=== PATIENT | male | born 1940 | race Caucasian/White ===

== ENCOUNTER 2018-06-02 18:27 | Inpatient (IN) | payer MEDICARE, SELFPAY ==
[~2018-06-02] VITALS: Ht 185.4 cm; Wt 79.4 kg
[~2018-06-02 18:27] MED LIST: ATEN25 PO; BISA5EC PO; CIPRO500 MG PO; Cipro500 MG PO; Enulose10 GM/15 M PO; Flomax0.4 MG PO; Golytely Solu4000 ML PO; HYDACE10B PO; LISHYD1012 PO; OXYC5 PO; Roxicodone5 MG PO; TRAM50 PO; ZESTORETIC 20-121 EA PO
[2018-06-02 18:58] LABS: BASOPHILS ABSOLUTE AUTO 0.05 K/mm3 (0.00-0.23); BASOPHILS PERCENT AUTO 0 % (0-2); EOSINOPHILS PERCENT AUTO 0 % (0-6); Hematocrit 40.1 % (37.0-53.0); Hemoglobin 13.4 g/dL (13.5-17.5); IMMATURE GRAN ABSOLUTE AUTO 0.16 K/mm3 (0.00-0.10); IMMATURE GRAN PERCENT AUTO 1 % (0-1); LYMPHOCYTES ABSOLUTE AUTO 0.38 K/mm3 (0.84-5.20); LYMPHOCYTES PERCENT AUTO 2 % (21-46); MONOCYTES ABSOLUTE AUTO 0.95 K/mm3 (0.16-1.47); MONOCYTES PERCENT AUTO 4 % (4-13); Mean Corpuscular HGB 30.3 pg (26.0-34.0); Mean Corpuscular HGB Conc 33.4 g/dL (31.5-36.5); Mean Corpuscular Volume 91 fL (80-100); Mean Platelet Volume 9.7 fL (9.1-12.4); NEUTROPHILS ABSOLUTE AUTO 23.93 K/mm3 (1.96-9.15); NEUTROPHILS PERCENT AUTO 94 % (41-73); Platelet Count 223 K/mm3 (150-400); Red Blood Cell Count 4.42 M/mm3 (4.30-5.90); White Blood Cell Count 25.47 K/mm3 (4.00-11.30)
[2018-06-02 19:04] LABS: Source, Urine Catheter
[2018-06-02 19:13] LABS: Appearance, Urine Cloudy (Clear); Bilirubin, Urine Neg (Neg); Blood, Urine 4+ (Neg); Color, Urine Yellow (P-Yellow); Glucose Qualitative, Urine Neg (Neg); Ketones, Urine 1+ (Neg); Leukocyte Esterase, Urine 3+ (Neg); Nitrite, Urine Pos (Neg); Protein, Urine 2+ (Neg); Urobilinogen, Urine NORM (Normal)
[2018-06-02 19:14] LABS: Alanine Aminotransfer (ALT/SGP 14 U/L (12-78); Albumin, Blood 3.2 g/dL (3.4-5.0); Albumin/Globulin Ratio 0.9 (0.8-1.8); Alk Phos 52 U/L (50-136); Anion Gap 9 mmol/L (6-16); Aspartate Aminotrans (AST/SGOT 14 U/L (12-37); Bilirubin, Total 0.6 mg/dL (0.1-1.0); Blood Urea Nitrogen 17 mg/dL (8-24); Bun/Creatinine Ratio 14.5 (12.0-20.0); CO2, Blood 24 mmol/L (21-32); Calcium, Blood 8.6 mg/dL (8.5-10.1); Chloride, Blood 102 mmol/L (98-108); Creatinine, Blood 1.17 mg/dL (0.60-1.20); Globulin, Blood 3.5 g/dL (2.2-4.0); Glomerular Filtration Rate >60 (60-); Glucose, Blood 120 mg/dL (70-99); Potassium, Blood 3.8 mmol/L (3.5-5.5); Sodium, Blood 135 mmol/L (136-145); Total Protein, Blood 6.7 g/dL (6.4-8.2)
[2018-06-02 19:31] LABS: White Blood Cells, Urine TNTC /hpf (0-5)
[2018-06-02 19:32] LABS: Bacteria Many /hpf; Red Blood Cells, Urine 25-50 /hpf (0-2); Squamous Epithelial Cells Few /hpf (Few)
[2018-06-03 05:50] LABS: Hematocrit 35.8 % (37.0-53.0); Hemoglobin 12.1 g/dL (13.5-17.5); Mean Corpuscular HGB 30.6 pg (26.0-34.0); Mean Corpuscular HGB Conc 33.8 g/dL (31.5-36.5); Mean Corpuscular Volume 91 fL (80-100); Mean Platelet Volume 9.8 fL (9.1-12.4); Platelet Count 176 K/mm3 (150-400); RDW Coefficient Variation 13.1 % (11.7-14.2); RDW Standard Deviation 43.5 fL (35.1-46.3); Red Blood Cell Count 3.95 M/mm3 (4.30-5.90); White Blood Cell Count 23.06 K/mm3 (4.00-11.30)
[2018-06-03 06:24] LABS: Anion Gap 9 mmol/L (6-16); Blood Urea Nitrogen 24 mg/dL (8-24); Bun/Creatinine Ratio 20.9 (12.0-20.0); CO2, Blood 23 mmol/L (21-32); Calcium, Blood 8.3 mg/dL (8.5-10.1); Chloride, Blood 107 mmol/L (98-108); Creatinine, Blood 1.15 mg/dL (0.60-1.20); Glomerular Filtration Rate >60 (60-); Glucose, Blood 103 mg/dL (70-99); Potassium, Blood 4.1 mmol/L (3.5-5.5); Sodium, Blood 139 mmol/L (136-145)
[2018-06-04 05:03] LABS: BASOPHILS ABSOLUTE AUTO 0.03 K/mm3 (0.00-0.23); BASOPHILS PERCENT AUTO 0 % (0-2); EOSINOPHILS ABSOLUTE AUTO 0.02 K/mm3 (0.00-0.68); EOSINOPHILS PERCENT AUTO 0 % (0-6); Hematocrit 34.4 % (37.0-53.0); Hemoglobin 11.4 g/dL (13.5-17.5); IMMATURE GRAN ABSOLUTE AUTO 0.08 K/mm3 (0.00-0.10); IMMATURE GRAN PERCENT AUTO 0 % (0-1); LYMPHOCYTES ABSOLUTE AUTO 0.73 K/mm3 (0.84-5.20); LYMPHOCYTES PERCENT AUTO 4 % (21-46); MONOCYTES ABSOLUTE AUTO 0.79 K/mm3 (0.16-1.47); MONOCYTES PERCENT AUTO 4 % (4-13); Mean Corpuscular HGB 30.7 pg (26.0-34.0); Mean Corpuscular HGB Conc 33.1 g/dL (31.5-36.5); Mean Corpuscular Volume 93 fL (80-100); Mean Platelet Volume 10.3 fL (9.1-12.4); NEUTROPHILS ABSOLUTE AUTO 17.91 K/mm3 (1.96-9.15); NEUTROPHILS PERCENT AUTO 92 % (41-73); Platelet Count 166 K/mm3 (150-400); RDW Coefficient Variation 13.4 % (11.7-14.2); RDW Standard Deviation 45.6 fL (35.1-46.3); Red Blood Cell Count 3.71 M/mm3 (4.30-5.90); White Blood Cell Count 19.56 K/mm3 (4.00-11.30)
[2018-06-04 05:31] LABS: Alanine Aminotransfer (ALT/SGP 16 U/L (12-78); Albumin, Blood 2.6 g/dL (3.4-5.0); Albumin/Globulin Ratio 0.7 (0.8-1.8); Alk Phos 50 U/L (50-136); Anion Gap 8 mmol/L (6-16); Aspartate Aminotrans (AST/SGOT 24 U/L (12-37); Bilirubin, Total 0.4 mg/dL (0.1-1.0); Blood Urea Nitrogen 36 mg/dL (8-24); CO2, Blood 27 mmol/L (21-32); Calcium, Blood 8.9 mg/dL (8.5-10.1); Chloride, Blood 102 mmol/L (98-108); Creatinine, Blood 1.16 mg/dL (0.60-1.20); Globulin, Blood 3.7 g/dL (2.2-4.0); Glomerular Filtration Rate >60 (60-); Glucose, Blood 93 mg/dL (70-99); Sodium, Blood 137 mmol/L (136-145); Total Protein, Blood 6.3 g/dL (6.4-8.2)
[2018-06-04] MEDS ORDERED: TAMS.4ER PO (12:31)
[2018-06-04] MEDS ORDERED: CEFD300 PO (12:32)
== END 2018-06-04 14:00 | disposition home or self-care (01) | DRG 872 ==
LOC: ER 18:27 → MEDS 21:45 → ENPENDDIS 06-04 11:58 → MEDS 06-04 14:00
PROVIDERS: Emergency Medicine; Hospitalist; Internal Medicine
DX: A41.9 Sepsis, unspecified organism (principal); N39.0 Urinary tract infection, site not specified; I10 Essential (primary) hypertension; M54.9 Dorsalgia, unspecified; G89.29 Other chronic pain; F17.210 Nicotine dependence, cigarettes, uncomplicated; N40.1 Benign prostatic hyperplasia with lower urinary tract symptoms
CPT/HCPCS: 36415; 51701; 71046; 80048; 80053; 81001; 83605; 85025; 85027; 87040; 87077; 87086; 87186; 96361; 96365; 99285-25; J0696; J1650; J3480; J7030

== ENCOUNTER 2018-09-10 15:23 | Emergency (ER) | payer SELFPAY ==
[~2018-09-10] VITALS: Ht 182.9 cm; Wt 77.1 kg
[~2018-09-10 15:23] MED LIST changes: +CEFD300 PO; +TAMS.4ER PO
[2018-09-10 17:20] LABS: Influenza A Negative (NEGATIVE); Influenza B Negative (NEGATIVE)
[2018-09-10] MEDS ORDERED: BENZ100A PO (17:27)
[2018-09-10] MEDS ORDERED: MONT10T PO (17:27)
[2018-09-10] MEDS ORDERED: ALBU90OI INH (17:27)
== END 2018-09-10 17:37 | disposition home or self-care (01) ==
LOC: ER 15:23
PROVIDERS: Physician Assistant
DX: R05 Cough (principal); I10 Essential (primary) hypertension; Z88.5 Allergy status to narcotic agent; Z87.891 Personal history of nicotine dependence
CPT/HCPCS: 71046; 87804; 99283-25

== ENCOUNTER → 2018-11-02 | Outpatient (CLI) | payer SELFPAY ==
[~2018-11-02] MED LIST changes: +ALBU90OI INH; +BENZ100A PO; +MONT10T PO
== END ==
LOC: LAB SHORT 12:45 → LAB EV 12:45
DX: N30.00 Acute cystitis without hematuria (principal)
CPT/HCPCS: 87086

== ENCOUNTER → 2019-08-08 | Outpatient (CLI) | payer SELFPAY ==
[~2019-08-08] MED LIST changes: +Aspirin EC81 MG PO
== END | disposition home or self-care (01) ==
LOC: LAB EV 17:37 → LAB SHORT 17:37
DX: N39.0 Urinary tract infection, site not specified (principal)
CPT/HCPCS: 87086

== ENCOUNTER 2019-09-01 15:34 | Observation (INO) | payer OTHER ==
[~2019-09-01] VITALS: Ht 182.9 cm; Wt 72.8 kg
[~2019-09-01 15:34] MED LIST changes: -Aspirin EC81 MG PO
[2019-09-01] MEDS ORDERED: Aspirin EC81 MG PO (15:50)
[2019-09-01 16:03] LABS: BASOPHILS ABSOLUTE AUTO 0.03 K/mm3 (0.00-0.23); BASOPHILS PERCENT AUTO 0 % (0-2); EOSINOPHILS ABSOLUTE AUTO 0.12 K/mm3 (0.00-0.68); EOSINOPHILS PERCENT AUTO 1 % (0-6); Hematocrit 38.2 % (37.0-53.0); IMMATURE GRAN ABSOLUTE AUTO 0.02 K/mm3 (0.00-0.10); IMMATURE GRAN PERCENT AUTO 0 % (0-1); LYMPHOCYTES ABSOLUTE AUTO 0.79 K/mm3 (0.84-5.20); LYMPHOCYTES PERCENT AUTO 8 % (21-46); MONOCYTES PERCENT AUTO 1 % (4-13); Mean Corpuscular HGB 29.4 pg (26.0-34.0); Mean Corpuscular HGB Conc 31.4 g/dL (31.5-36.5); Mean Corpuscular Volume 94 fL (80-100); Mean Platelet Volume 9.2 fL (9.1-12.4); NEUTROPHILS ABSOLUTE AUTO 9.08 K/mm3 (1.96-9.15); NEUTROPHILS PERCENT AUTO 90 % (41-73); Platelet Count 342 K/mm3 (150-400); RDW Coefficient Variation 14.5 % (11.7-14.2); Red Blood Cell Count 4.08 M/mm3 (4.30-5.90); White Blood Cell Count 10.14 K/mm3 (4.00-11.30)
[2019-09-01 16:27] LABS: Alanine Aminotransfer (ALT/SGP 15 U/L (12-78); Albumin, Blood 3.3 g/dL (3.4-5.0); Albumin/Globulin Ratio 0.9 (0.8-1.8); Alk Phos 64 U/L (50-136); Anion Gap 5 mmol/L (6-16); Aspartate Aminotrans (AST/SGOT 19 U/L (12-37); Bilirubin, Total 0.3 mg/dL (0.1-1.0); Blood Urea Nitrogen 25 mg/dL (8-24); Bun/Creatinine Ratio 15.1 (12.0-20.0); CO2, Blood 27 mmol/L (21-32); Calcium, Blood 8.8 mg/dL (8.5-10.1); Chloride, Blood 110 mmol/L (98-108); Creatinine, Blood 1.66 mg/dL (0.60-1.20); Globulin, Blood 3.5 g/dL (2.2-4.0); Glomerular Filtration Rate 43 (60-); Glucose, Blood 106 mg/dL (70-99); Sodium, Blood 142 mmol/L (136-145); Total Protein, Blood 6.8 g/dL (6.4-8.2); Troponin I <0.015 ng/mL (0.000-0.040)
[2019-09-01 16:35] LABS: Calcium, Ionized (POC) 1.02 mmol/L (1.10-1.46); Chloride (POC) 109 mmol/L (98-108); Creatinine (POC) 1.6 mg/dL (0.8-1.3); Glucose (ISTAT POC) 90 mg/dL (70-99); Hemoglobin (POC) 11.9 g/dL (13.5-17.5); Potassium (POC) 4.3 mmol/L (3.5-5.5); Sodium (POC) 140 mmol/L (135-148); Total CO2 (POC) 25 mmol/L (21-32)
[2019-09-01 16:40] LABS: Source, Urine Clean Catch
[2019-09-01 16:55] LABS: Bilirubin, Urine Neg (Neg); Blood, Urine 2+ (Neg); Glucose Qualitative, Urine Neg (Neg); Ketones, Urine Neg (Neg); Leukocyte Esterase, Urine 3+ (Neg); Nitrite, Urine Pos (Neg); Protein, Urine 2+ (Neg); Urobilinogen, Urine NORM (Normal)
[2019-09-01 17:07] LABS: Appearance, Urine Hazy (Clear); Color, Urine Yellow (P-Yellow); White Blood Cells, Urine TNTC /hpf (0-5)
[2019-09-01 17:08] LABS: Bacteria Many /hpf; Squamous Epithelial Cells Many /hpf (Few)
[2019-09-01 17:48] LABS: U Phencyclidine Screen DETECTED
[2019-09-01 17:49] LABS: U Amphetamine Screen Not Detected; U Barbituate Screen Not Detected; U Benzodiazapine Screen Not Detected; U Buprenorphine Screen Not Detected; U Cannabinoids Screen Not Detected; U Cocaine Screen Not Detected; U Methadone Screen Not Detected; U Methamphetamine Screen Not Detected; U Opiates Screen DETECTED; U Oxycodone Screen Not Detected; U Propoxyphene Screen Not Detected
--- NOTE | 2019-09-01 20:01 | NUR ---
PT ADMITTED TO ROOM ICU 12 FROM ED AT 1932. REPORT RECEIVED. REVIEWED ED DOCUMENTATION. PT SLIDE TRANSFERRED TO BED. PT ON NARCAN DRIP. IS AWAKE AND IS IRRITABLE. DOES NOT WANT TO ANSWER ANY QUESTIONS. ORIENTED PT TO ROOM, ICU STATUS, AND GENERAL PLAN OF CARE. PT'S VERBALIZES HIS ONLY CONCERN IS THAT HE IS COLD AND WANTS BLANKETS. WILL ADDRESS ADMISSION QUESTIONS WHEN PT MORE AGREEABLE TO QUESTIONING. PT DOES SELF CATH AT HOME, WILL CONSIDER DHALIWAL IF PT NOT ABLE TO VOID.
--- NOTE | 2019-09-01 23:00 | NUR ---
SOHAIL RAZA, YUNI HOSPITALIST CALLED TO UNIT TO SPEAK TO PATIENT ABOUT HIS WANTING TO LEAVE AMA. UPDATE GIVEN THAT NARCAN DRIP HAD BEEN ON HOLD FOR 30 TO 45 MINUTES. PT QUESTIONED BY SOCCER REFEREE CONCERNING DECISION. NO ORDERS TO BE RECEIVED FOR DISCHARGE. DID PRESENT PT WITH AMA FORM. LEEROY SAUCEDA DISCUSSED WITH PT THE RATIONALES FOR REMAINING IN THE HOSPITAL, AND RISKS. THESE ALSO COVERED BY THIS RN. REMOVED BOTH IV'S. ONE THAT HAD BEEN PLACED AFTER PT HAD PULLED OUT EXISTING FIELD START IV. REMOVED DHALIWAL CATHETER AND STATLOCK. ALL LEADS AND EQUIPMENT REMOVED FROM PT. HIS CLOTHING WAS RETURNED TO PT. HE IS TO DRESS HIMSELF.
--- NOTE | 2019-09-01 23:46 | NUR ---
AMA PT LEAVE THE UNIT BY AMBULATION. ESCORTED TO OUTSIDE BY THIS RN. PT THANKED THE STAFF FOR THE HELP, BUT WOULD NOT RECONSIDER HIS DECISION TO LEAVE AMA. PT OUT OF ICU AT 2323.
[2019-09-02 00:27] LABS: Source, Urine Catheter
[2019-09-02 00:30] LABS: Bilirubin, Urine Neg (Neg); Blood, Urine 3+ (Neg); Glucose Qualitative, Urine Neg (Neg); Ketones, Urine Neg (Neg); Leukocyte Esterase, Urine 2+ (Neg); Nitrite, Urine Pos (Neg); Protein, Urine 1+ (Neg); Urobilinogen, Urine NORM (Normal)
[2019-09-02 00:37] LABS: Appearance, Urine Hazy (Clear); Color, Urine Yellow (P-Yellow)
[2019-09-02 00:41] LABS: Bacteria Many /hpf; Red Blood Cells, Urine 0-2 /hpf (0-2); Squamous Epithelial Cells Few /hpf (Few); White Blood Cells, Urine TNTC /hpf (0-5)
== END 2019-09-01 23:23 | disposition left against medical advice (07) ==
LOC: ER 15:34 → ICUW 15:35
PROVIDERS: Emergency Medicine; Nurse Practitioner Acute Care; ADMIT Hospitalist
DX: G92 Toxic encephalopathy (principal); I10 Essential (primary) hypertension; N40.0 Benign prostatic hyperplasia without lower urinary tract symptoms; F17.200 Nicotine dependence, unspecified, uncomplicated; N17.9 Acute kidney failure, unspecified; I73.89 Other specified peripheral vascular diseases; F16.10 Hallucinogen abuse, uncomplicated; Z88.5 Allergy status to narcotic agent; Z79.82 Long term (current) use of aspirin
CPT/HCPCS: 36415; 51701; 51702; 70450; 71045; 71275; 74175; 80047; 80053; 81001; 82550; 83880; 84484; 85014; 85025; 87077; 87086; 87186; 93005; 93010; 96361-59; 96365-59; 96372; 96376-59; 99285-25; G0378; J1644; J2310; J7030; Q9967

== ENCOUNTER → 2019-09-02 | Outpatient (CLI) | payer SELFPAY ==
[~2019-09-02] MED LIST changes: +Aspirin EC81 MG PO
== END | disposition home or self-care (01) ==
LOC: LAB SHORT 15:54 → LAB EV 15:54
DX: R30.0 Dysuria (principal)
CPT/HCPCS: 87077; 87086; 87186

== ENCOUNTER 2019-11-06 00:25 | Emergency (ER) | payer SELFPAY ==
[~2019-11-06] VITALS: Ht 182.9 cm; Wt 74.8 kg
== END 2019-11-06 03:04 | disposition home or self-care (01) ==
LOC: ER 00:25
DX: R09.89 Other specified symptoms and signs involving the circulatory and respiratory systems (principal); I10 Essential (primary) hypertension; Z79.82 Long term (current) use of aspirin; F17.200 Nicotine dependence, unspecified, uncomplicated; Z88.5 Allergy status to narcotic agent
CPT/HCPCS: 70360; 99283-25

== ENCOUNTER 2020-01-26 13:10 | Emergency (ER) | payer SELFPAY ==
[~2020-01-26] VITALS: Ht 185.4 cm; Wt 72.6 kg
[2020-01-26 14:27] LABS: Source, Urine Catheter
[2020-01-26 14:39] LABS: BASOPHILS ABSOLUTE AUTO 0.04 K/mm3 (0.00-0.23); BASOPHILS PERCENT AUTO 1 % (0-2); EOSINOPHILS ABSOLUTE AUTO 0.18 K/mm3 (0.00-0.68); EOSINOPHILS PERCENT AUTO 3 % (0-6); Hemoglobin 10.6 g/dL (13.5-17.5); IMMATURE GRAN ABSOLUTE AUTO 0.01 K/mm3 (0.00-0.10); IMMATURE GRAN PERCENT AUTO 0 % (0-1); LYMPHOCYTES ABSOLUTE AUTO 0.73 K/mm3 (0.84-5.20); LYMPHOCYTES PERCENT AUTO 10 % (21-46); MONOCYTES PERCENT AUTO 10 % (4-13); Mean Corpuscular HGB 27.6 pg (26.0-34.0); Mean Corpuscular HGB Conc 31.2 g/dL (31.5-36.5); Mean Corpuscular Volume 89 fL (80-100); Mean Platelet Volume 9.3 fL (9.1-12.4); NEUTROPHILS ABSOLUTE AUTO 5.59 K/mm3 (1.96-9.15); NEUTROPHILS PERCENT AUTO 77 % (41-73); Platelet Count 310 K/mm3 (150-400); RDW Coefficient Variation 17.2 % (11.7-14.2); RDW Standard Deviation 54.9 fL (35.1-46.3); Red Blood Cell Count 3.84 M/mm3 (4.30-5.90); White Blood Cell Count 7.25 K/mm3 (4.00-11.30)
[2020-01-26 14:51] LABS: Appearance, Urine Bloody (Clear); Bilirubin, Urine Neg (Neg); Blood, Urine 5+ (Neg); Color, Urine Red (P-Yellow); Glucose Qualitative, Urine Neg (Neg); Ketones, Urine 1+ (Neg); Leukocyte Esterase, Urine 2+ (Neg); Nitrite, Urine Pos (Neg); Protein, Urine 4+ (Neg); Specific Gravity, Urine 1.015 (1.003-1.022); Urobilinogen, Urine 1+ (Normal)
[2020-01-26 14:53] LABS: Bacteria Many /hpf; Red Blood Cells, Urine TNTC /hpf (0-2); Squamous Epithelial Cells Not Seen /hpf (Few); White Blood Cells, Urine TNTC /hpf (0-5)
[2020-01-26 15:00] LABS: Albumin, Blood 3.4 g/dL (3.4-5.0); Albumin/Globulin Ratio 0.9 (0.8-1.8); Bilirubin, Total 0.4 mg/dL (0.1-1.0); Bun/Creatinine Ratio 28.2 (12.0-20.0); Calcium, Blood 9.2 mg/dL (8.5-10.1); Creatinine, Blood 1.31 mg/dL (0.60-1.20); Globulin, Blood 3.6 g/dL (2.2-4.0); Potassium, Blood 3.8 mmol/L (3.5-5.5)
[2020-01-26] MEDS ORDERED: Pataday2.5 ML BOTHEYES (16:26)
== END 2020-01-26 15:21 | disposition left against medical advice (07) ==
LOC: ER 13:10
PROVIDERS: Physician Assistant
DX: G93.41 Metabolic encephalopathy (principal); N28.89 Other specified disorders of kidney and ureter; R31.9 Hematuria, unspecified; I10 Essential (primary) hypertension; N40.0 Benign prostatic hyperplasia without lower urinary tract symptoms; F17.210 Nicotine dependence, cigarettes, uncomplicated; Z88.5 Allergy status to narcotic agent; Z79.82 Long term (current) use of aspirin
CPT/HCPCS: 76770; 80053; 81001; 85025; 87077; 87086; 87186; 99284-25

== ENCOUNTER 2020-01-26 15:56 | Inpatient (IN) | payer MEDICARE ==
[~2020-01-26] VITALS: Ht 185.4 cm; Wt 69.2 kg
[2020-01-26] MEDS ORDERED: Pataday2.5 ML BOTHEYES (16:26)
[2020-01-26 18:17] LABS: U Amphetamine Screen Not Detected; U Barbituate Screen Not Detected; U Benzodiazapine Screen Not Detected; U Buprenorphine Screen Not Detected; U Cannabinoids Screen Not Detected; U Cocaine Screen Not Detected; U Methadone Screen Not Detected; U Methamphetamine Screen Not Detected; U Opiates Screen DETECTED; U Oxycodone Screen Not Detected; U Phencyclidine Screen Not Detected; U Propoxyphene Screen Not Detected
[2020-01-26 18:49] LABS: International Normalized Ratio 0.97; Prothrombin Time Results 10.4 Sec (9.7-11.5)
--- NOTE | 2020-01-26 20:33 | NUR ---
TRANSFER PT TO TRANSFER TO ICU 5. REPORT RECEIVED FROM LEEROY GOLDSTEIN.
[2020-01-26 22:06] LABS: Hematocrit 32.2 % (37.0-53.0); Hemoglobin 10.1 g/dL (13.5-17.5)
--- NOTE | 2020-01-26 22:16 | NUR ---
ARRIVAL TO ICU PT ARRIVED TO ICU APPROX 2039. PT SLEEPY, AROUSES TO VERBAL STIMULI. PT DOES NOT ANSWER WHEN ASKED REPEATEDLY ABOUT ORIENTATION QUESTIONS, BUT EXPRESSES NEEDS. PUPILS EQUAL AND REACTIVE, STRENGTH WEAK THROUGHOUT BUT EQUAL BILATERALLY. PT FOLLOWING SOME COMMANDS. PT DENIES PAIN, BUT REPEATEDLY REQUESTING TO URINATE AND HAVE BOWEL MOVEMENT. PT HAVING SMALL AMOUNT OF URINE OUTPUT, BLOOD-TINGED. LEEROY GOLDSTEIN FROM ER REPORTS BLADDER SCAN PRIOR TO DEPARTING ER THAT REVEALED 200 ML. WILL RECHECK AT MIDNIGHT AND Q6H PER ORDERS. NO SUCCESS WITH BOWEL MOVEMENT USING BEDPAN. PT FORGETFUL AND APPEARS CONFUSED ABOUT PLAN OF CARE, BUT IS REDIRECTABLE. PT HAS SLEPT INTERMITTENTLY BUT AROUSES TO REQUEST TO USE BEDPAN AND URINAL. PT ABLE TO ASSIST WITH TURNS IN BED. VITALS STABLE. BED ALARM IN PLACE. 1:[address] INVOLUNTARY HOLD IN PLACE.
--- NOTE | 2020-01-27 01:25 | NUR ---
UPDATE PT STRUGGLING WITH URINATION. WANTS TO KEEP URINAL IN BED SO HE CAN PEE CONTINUOUSLY. ABDOMEN PAINFUL. BLADDER SCANNED FOR NEARLY 500. DHALIWAL PLACED. NO 3 WAY IRRIGATION CATHETERS AVAILABLE IN ICU OR SURGICAL. DISCUSSED WITH PLASTIC CNC MACHINE OPERATOR AND 18 TURKISH PLACED. PT IMMEDIATELY HAD RELIEF FROM PAIN/PRESSURE IN ABDOMEN, APPROX 500 ML OF BLOODY URINE DRAINED. PT HAS SLEPT SOUNDLY SINCE. VITALS STABLE, BP ELEVATED EARLIER BUT LIKELY PAIN RELATED IT IS IMPROVED AFTER DHALIWAL PLACED. NEURO STATUS UNCHANGED.
[2020-01-27 03:45] LABS: BASOPHILS ABSOLUTE AUTO 0.04 K/mm3 (0.00-0.23); BASOPHILS PERCENT AUTO 1 % (0-2); EOSINOPHILS ABSOLUTE AUTO 0.07 K/mm3 (0.00-0.68); EOSINOPHILS PERCENT AUTO 1 % (0-6); Hematocrit 30.6 % (37.0-53.0); Hemoglobin 9.7 g/dL (13.5-17.5); IMMATURE GRAN ABSOLUTE AUTO 0.02 K/mm3 (0.00-0.10); IMMATURE GRAN PERCENT AUTO 0 % (0-1); LYMPHOCYTES ABSOLUTE AUTO 0.57 K/mm3 (0.84-5.20); LYMPHOCYTES PERCENT AUTO 7 % (21-46); MONOCYTES PERCENT AUTO 8 % (4-13); Mean Corpuscular HGB 27.9 pg (26.0-34.0); Mean Corpuscular HGB Conc 31.7 g/dL (31.5-36.5); Mean Corpuscular Volume 88 fL (80-100); Mean Platelet Volume 9.2 fL (9.1-12.4); NEUTROPHILS ABSOLUTE AUTO 7.27 K/mm3 (1.96-9.15); NEUTROPHILS PERCENT AUTO 84 % (41-73); Platelet Count 278 K/mm3 (150-400); RDW Coefficient Variation 16.9 % (11.7-14.2); RDW Standard Deviation 54.4 fL (35.1-46.3); Red Blood Cell Count 3.48 M/mm3 (4.30-5.90); White Blood Cell Count 8.67 K/mm3 (4.00-11.30)
[2020-01-27 04:05] LABS: Anion Gap 7 mmol/L (6-16); Blood Urea Nitrogen 27 mg/dL (8-24); Bun/Creatinine Ratio 30.3 (12.0-20.0); CO2, Blood 22 mmol/L (21-32); Calcium, Blood 8.1 mg/dL (8.5-10.1); Chloride, Blood 113 mmol/L (98-108); Creatinine, Blood 0.89 mg/dL (0.60-1.20); Glomerular Filtration Rate >60 (60-); Glucose, Blood 88 mg/dL (70-99); Potassium, Blood 3.7 mmol/L (3.5-5.5); Sodium, Blood 142 mmol/L (136-145)
--- NOTE | 2020-01-27 06:23 | NUR ---
SUMMARY DHALIWAL HAS CONTINUED TO DRAIN RED URINE WITH CLOTS. SINCE PLACEMENT OF DHALIWAL, PT HAS SLEPT SOUNDLY, AROUSING FOR REASSESSMENT. CONTINUES TO NOT ANSWER QUESTIONS, BUT FOLLOWS DIRECTIONS. QUICKLY FALLS BACK TO SLEEP AFTER ASSESSMENTS. VITALS STABLE. BP CONTINUES TO BE ELEVATED BUT SYSTOLIC LESS THAN 160 MOST CONSISTENTLY SO NO PRN ADDITIONAL ANTIHYPERTENSIVES GIVEN.
--- NOTE | 2020-01-27 08:28 | NUR ---
PT LYING IN BED ON L SIDE WITH EYES CLOSED. RESPONDS TO VERBAL STIMULI WITH CONFUSED SPEECH. MAKES EYE CONTACT. DOES NOT FOLOW COMMANDS. AMANDA. LUNG SOUNDS DIMINISHED IN BASES OTHERWISE CLEAR ALL OTHER BUSTAMANTE. SHALLOW AND TACHYPNIC RESP. ON TELE. RHYTHMN NSR @ RATE OF 71. PULSES STRONG. ABD SOFT. NO RESPONSE FROM PT UPON PALPATION. BOWEL SOUNDS AUSCLTATED IN ALL FOUR QUADRANTS. DHALIWAL IN PLACE AND DRAINING DARK RED URINE. SMALL CLOTS NOTED. SKIN WARM AND DRY. PERIPHERAL LINE IN LFA INFUSING AT A RATE OF 75 ML/HR. BED IN LOW POSITION, RAILS UP, AND CALL LIGHT WITH IN REACH.
--- NOTE | 2020-01-27 12:06 | NUR ---
IRRIGATED PT BLADDER W/ 100mL OF STERILE SALINE. PT TOLERATED PROCEDURE WELL. DHALIWAL FLOWING WELL. PT NOW RESTING IN BED ON R SIDE.
--- NOTE | 2020-01-27 13:33 | NUR ---
Spiritual care visit conducted. Patient is lying on his side and resting. Patient awakens to his name. Patient tells me that he is not doing very well. Physically or mentally. Patient tells me that he is no shape to talk right now but will "hopefully be waking up more soon." I ask patient if I could pray for him and he says, "please do." I gladly provide prayer. Patient voices appreciation
[2020-01-27 13:52] LABS: Hematocrit 32.2 % (37.0-53.0); Hemoglobin 10.1 g/dL (13.5-17.5)
--- NOTE | 2020-01-27 17:09 | NUR ---
PT VISIBLY ANXIOUS. STS HE WANTS TO LEAVE. PT PULLED PERIPHERAL IV. NEW PERIPHERAL LINE ESTABLISHED. PT LYING IN BE AT THIS TIME.
--- NOTE | 2020-01-27 18:11 | NUR ---
SHIFT SUMMARY PT HAS BECOME INCREASINGLY AGITATED OVER THE DAY. HAS PULLED LEADS OFF CHEST SEVERAL TIMES, PULLED PERIPHERAL IV, AND STATED THAT HE PLANS ON PULLING OUT HIS DHALIWAL. PT STS HE WANT TO LEAVE. PT HAS BEEN REDIRECTED SEVERAL TIMES AND GIVEN SEROQUEL. URINE HAS BECOME LESS RED IN COLOR AND NO BLOOD CLOTS NOTED. PT WILL BE MOVED TO PCU. REPORT HAS BEEN GIVEN TO DARREN UMAÑA AND PT WILL BE TRANSPORTED VIA BED.
--- NOTE | 2020-01-27 18:59 | NUR ---
PT ON THEIR WAY TO PCU 8 VIA BED BY REDDY
[2020-01-27 19:37] LABS: Hematocrit 31.5 % (37.0-53.0); Hemoglobin 10.2 g/dL (13.5-17.5)
[2020-01-28 01:41] LABS: BASOPHILS ABSOLUTE AUTO 0.02 K/mm3 (0.00-0.23); BASOPHILS PERCENT AUTO 0 % (0-2); EOSINOPHILS ABSOLUTE AUTO 0.07 K/mm3 (0.00-0.68); EOSINOPHILS PERCENT AUTO 1 % (0-6); Hematocrit 29.8 % (37.0-53.0); Hemoglobin 9.4 g/dL (13.5-17.5); IMMATURE GRAN ABSOLUTE AUTO 0.02 K/mm3 (0.00-0.10); IMMATURE GRAN PERCENT AUTO 0 % (0-1); LYMPHOCYTES ABSOLUTE AUTO 0.45 K/mm3 (0.84-5.20); LYMPHOCYTES PERCENT AUTO 6 % (21-46); MONOCYTES ABSOLUTE AUTO 0.62 K/mm3 (0.16-1.47); MONOCYTES PERCENT AUTO 9 % (4-13); Mean Corpuscular HGB 27.3 pg (26.0-34.0); Mean Corpuscular HGB Conc 31.5 g/dL (31.5-36.5); Mean Corpuscular Volume 87 fL (80-100); Mean Platelet Volume 9.1 fL (9.1-12.4); NEUTROPHILS ABSOLUTE AUTO 6.03 K/mm3 (1.96-9.15); NEUTROPHILS PERCENT AUTO 84 % (41-73); Platelet Count 279 K/mm3 (150-400); RDW Coefficient Variation 16.4 % (11.7-14.2); RDW Standard Deviation 52.2 fL (35.1-46.3); Red Blood Cell Count 3.44 M/mm3 (4.30-5.90); White Blood Cell Count 7.21 K/mm3 (4.00-11.30)
[2020-01-28 01:59] LABS: Albumin, Blood 2.6 g/dL (3.4-5.0); Anion Gap 7 mmol/L (6-16); Blood Urea Nitrogen 19 mg/dL (8-24); Bun/Creatinine Ratio 23.1 (12.0-20.0); CO2, Blood 23 mmol/L (21-32); Calcium, Blood 8.1 mg/dL (8.5-10.1); Chloride, Blood 112 mmol/L (98-108); Creatinine, Blood 0.82 mg/dL (0.60-1.20); Glomerular Filtration Rate >60 (60-); Glucose, Blood 92 mg/dL (70-99); Phosphorus, Blood 2.5 mg/dL (2.5-4.9); Potassium, Blood 3.5 mmol/L (3.5-5.5); Sodium, Blood 142 mmol/L (136-145)
--- NOTE | 2020-01-28 05:57 | NUR ---
SHIFT SUMMARY PT SLEEPING IN ROOM COMFORTABLY AT THIS TIME. NO ACUTE CHANGES IN STATUS T/O NIGHT. PT ARRIVED TO UNIT AT SHIFT CHANGE FROM ICU. PT WAS SLEEPING SOUNDLY UPON ARRIVAL, OPENED EYES BREIFLY TO VERBAL, PT REMAINED ALERTED PER ICU REPORT. PT HAS SLEPT T/O NIGHT WAKING OCCASIONALLY TO PULL AT IV LINES, TELE LEADS, AND DHALIWAL. PT ON CENTRAL MONITORING D/T BEING FLIGHT RISK. EARLY IN SHIFT PT TORE IV TUBING APART AND LINEN WAS CHANGED D/T BLOOD LEAKING FROM IV. IV CATHETER REMAINED INTACT AND NEW DRESSING WAS PLACED, SOFT NETTING PLACED TO PREVENT PT FROM PULLING AT LINES. NS INFUSING AT 125ML/HR. DHALIWAL CATH IN PLACE DRAINING RED URINE, RED COLOR HAS APPEARED TO LIGHTEN T/O NIGHT. BLADDER IRRIGATED TO DURING NIGHT D/T PRESENCE OF CLOTS. VERY FEW CLOTS NOTED T/O NIGHT. BED ALARM ON. CALL LIGHT IN REACH. PT UNABEL TO UTILIZE CALL LIGHT AFFECTIVELY D/T AMS.
[2020-01-28 07:57] LABS: Hematocrit 29.6 % (37.0-53.0); Hemoglobin 9.6 g/dL (13.5-17.5)
--- NOTE | 2020-01-28 11:23 | NUR ---
BLADDER IRRIGATION PERFORMED BY WARREN UMAÑA, 800ML OF STERILE WATER IN AND OUT WITH BLOOD CLOTS. PT IS CONSTANTLY PULLING AT CATHETER. CATH IS CONCEALED. PT REMAINS ON CAMERA.
--- NOTE | 2020-01-28 17:52 | NUR ---
SHIFT NOTE PT THIS AM AWOKE AND WAS ORIENTED AND ANSWERING MOST QUESTIONS APPROPRIATELY, WHEN HE DID NOT KNOW THE DATE HE USED HIS CELL PHONE TO FIND OUT THE DATE. PT HAS BEEN GETTTING OUT OF BED SOUNDING OFF BED ALARM NUMEROUS TIMES TODAY, PT STATING EACH TIME THAT HE NEEDS TO USE THE BATHROOM OR LEAVE HE HAS PEOPLE TO TAKE CARE OF. PT HAS ALSO BEEN PULLING AT DHALIWAL MOST OF THE DAY, DHALIWAL WAS IRRIGATED TODAY WITH SOME CLOTS. DHALIWAL IS DRAINING WELL TO GRAVITY AT THE TIME OF THIS NOTE. HAS ATE MEALS WELL. PT DESPITE BEING ORIENTED TO YEAR, SELF AND SURROUNDINGS IS CONFUSED AND NEEDS REDIRECTED OFTEN. PT IS ON CONSTANT VIDEO MONITORING, WHICH CENTRAL MONITORING HAS NEEDED TO CONTACT STAFF NUMEROUS TIMES T/O THE DAY PT IS ATTEMPTING TO PULL HIS DHALIWAL AND GETTING OUT OF BED. PT DID REMOVE HIS IV THIS AM WHICH WAS REPLACED THIS EVENING, THEN IV MEDICATIONS WERE D/C. PT'S URINE IS DRAINING CLEAR URINE WITH THE OCCASIONAL RED STREAKING NOTED AT THE TIME OF THIS NOTE.
[2020-01-28 18:18] LABS: Hematocrit 32.6 % (37.0-53.0); Hemoglobin 10.6 g/dL (13.5-17.5)
[2020-01-29 04:06] LABS: Hematocrit 32.3 % (37.0-53.0); Hemoglobin 10.3 g/dL (13.5-17.5); Mean Corpuscular HGB 27.8 pg (26.0-34.0); Mean Corpuscular HGB Conc 31.9 g/dL (31.5-36.5); Mean Corpuscular Volume 87 fL (80-100); Mean Platelet Volume 9.6 fL (9.1-12.4); Platelet Count 317 K/mm3 (150-400); RDW Coefficient Variation 16.8 % (11.7-14.2); RDW Standard Deviation 52.3 fL (35.1-46.3); Red Blood Cell Count 3.71 M/mm3 (4.30-5.90); White Blood Cell Count 6.57 K/mm3 (4.00-11.30)
[2020-01-29 04:28] LABS: Albumin, Blood 3.1 g/dL (3.4-5.0); Anion Gap 8 mmol/L (6-16); Blood Urea Nitrogen 13 mg/dL (8-24); CO2, Blood 25 mmol/L (21-32); Calcium, Blood 8.7 mg/dL (8.5-10.1); Chloride, Blood 111 mmol/L (98-108); Creatinine, Blood 0.81 mg/dL (0.60-1.20); Glomerular Filtration Rate >60 (60-); Glucose, Blood 85 mg/dL (70-99); Phosphorus, Blood 2.2 mg/dL (2.5-4.9); Sodium, Blood 144 mmol/L (136-145)
--- NOTE | 2020-01-29 05:45 | NUR ---
SHIFT SUMMARY PT SLEEPING IN ROOM COMFORTABLY AT THIS TIME. NO ACUTE CHANGES IN STATUS T/O NIGHT. PT REMAINS ALTERED. ALERT TO SELF AND LIMITED SURROUNDINGS ONLY. PT ABLE TO SAY HE IS IN HOSPITAL AND YEAR, BUT CANNOT STATE DAY OR MONTH. PT WAS PLACED IN BILAT SOFT WIRST RESTRAINT D/T CONTINUALLY PULLING AT CORDS, IV, AND DHALIWAL CATH. PT WAS ALSO COMBATTIVE TO STAFF. DHALIWAL CATH REMAINS IN PLACE DRAINING RED TINGED URINE. PT CONTINUED TO TRY AND GET OUT OF BED T/O NIGHT W/ BILAT WRIST RESTRAINTS ON. PT REDIRECTED MULTIPLE TIMES. PAJAMA PANTYS PLACED TO AID IN STOPING PT FROM PULLING AT DHALIWAL CATH. CALL LIGHT IN REACH. BED ALARM ON FOR SAFETY. PT ALSO ON VIDEO MONITORING.
--- NOTE | 2020-01-29 11:24 | NUR ---
DAUGHTER-NITHIN RETURNED [employer] PHONE CALL. YESTERDAY WHEN WE TALKED SHE RELATED THAT SHE WOULD COME GET HER DAD. SHE LIVES IN [place]. SHE WANTS TO MOVE HIM NEARER TO HER. SHE REQUESTED A HEADS UP TO GET HERE. TODAY I TALKED WITH HER. RELATED HER DADS BEHAVIOR LAST EVENING TOWARDS FEMALE STAFF AND PLACING HIM IN BILATERAL WRIST RESTRAINTS. SHE STATED," YOU DO WHATEVER YOU NEED TO DO TO KEEP SAFE. OTHERS HAVE TOLD ME IN THE PAST ABOUT SIMILIAR BEHAVIOR. DON'T WORRY ABOUT CALLING ME TO COME GET HIM. HE SHOULD BE ABLE TO CARE FOR HIMSELF WHEN HE GETS OUT. i WILL NOT BOTHER YOU LADIES ANYMORE." SHE REQUESTED TO BE NOTIFIED IF HE TOOK A TURN FOR THE WORSE. CONTINUE POT.
--- NOTE | 2020-01-29 18:21 | NUR ---
REPORT GIVEN TO LEEROY CASILLAS ASSUMING CARE OF PATIENT AT [facility], PLANS FOR [place] TRANSFER FOR UROLOGY.
--- NOTE | 2020-01-29 18:32 | NUR ---
SHIFT SUMMARY PT ALERT FOR MAJORITY OF SHIFT; ORIENTED TO PERSON AND TIME AND IS ABLE TO FOLLOW DIRECTIONS. MEDICATED FOR AGGITATION x2; THIS EVENING PT WAKING TO VERBAL STIMULI AND QUICKLY FALLING BACK TO SLEEP. PT CONTINUES TO BE INAPPROPRIATE WITH STAFF; ATTEMPTING TO GRAB AT STAFF AND SPEAKING INAPPROPRIATELY AND SOLISITING STAFF. PT DENIES PAIN, SOB, NASUEA, DIZZINESS. DHALIWAL PATIENT AND DRAINING RED FLUIDS, IRRIGATED THE DHALIWAL THIS AFTERNOON, WITH MULTIPLE BLOOD CLOTS NOTED; DRAINED DHALIWAL, NEW DRAINAGE CONTINUES TO BE RED. PT REFUSING LUNCH AND DINNER; MINIMAL INTAKE FROM BREAKFAST THIS AM. ELEVATED BP THIS AM, MEDICATED WITH SCHEDULE MED AND x1 PRN HYDRALAZINE WITH POSITIVE RESULTS. DAUGHTER NITHIN NOTIFIED OF TRANSFER TO [facility] BY LEATHER SHAVER JACKIE. PT LEFT ROOM WITH [facility] ON A GURNEY AT 1905. REPORT CALLED TO LEEROY CASILLAS ASSUMING CARE OF PATIENT AT [facility], NOTIFIED LEATHER SHAVER AT [facility] WHEN PT LEFT WITH TRANSPORT.
== END 2020-01-29 19:05 | disposition short-term general hospital (02) | DRG 689 ==
LOC: ER 15:56 → PCU 20:40 → ICUE 20:40 → PCU 01-27 14:01
PROVIDERS: Internal Medicine; Nurse Practitioner Acute Care; Physician Assistant; ADMIT Hospitalist
DX: N39.0 Urinary tract infection, site not specified (principal); G92 Toxic encephalopathy; F03.91 Unspecified dementia, unspecified severity, with behavioral disturbance; C64.2 Malignant neoplasm of left kidney, except renal pelvis; B95.2 Enterococcus as the cause of diseases classified elsewhere; N40.1 Benign prostatic hyperplasia with lower urinary tract symptoms; R31.0 Gross hematuria; N21.0 Calculus in bladder; I12.9 Hypertensive chronic kidney disease with stage 1 through stage 4 chronic kidney disease, or unspecified chronic kidney disease; N18.3 Chronic kidney disease, stage 3 (moderate); G89.4 Chronic pain syndrome; E78.2 Mixed hyperlipidemia; F17.210 Nicotine dependence, cigarettes, uncomplicated
CPT/HCPCS: 36415; 70450; 80048; 80069; 83605; 85014; 85018; 85025; 85027; 85610; 85730; 96361; 96365; 96367; 96375; 99285-25; A9270; J0360; J0696; J1630; J1956; J2060; J3480; J7030; J7060

== ENCOUNTER 2020-02-28 15:31 | Emergency (ER) | payer SELFPAY ==
[~2020-02-28] VITALS: Ht 182.9 cm; Wt 72.6 kg
[~2020-02-28 15:31] MED LIST changes: +Pataday2.5 ML BOTHEYES
== END 2020-02-28 16:38 | disposition left against medical advice (07) ==
LOC: ER 15:31
DX: Z53.21 Procedure and treatment not carried out due to patient leaving prior to being seen by health care provider (principal)
CPT/HCPCS: 99282

== ENCOUNTER 2020-05-16 20:33 | Observation (INO) | payer SELFPAY ==
[~2020-05-16] VITALS: Ht 182.9 cm; Wt 74.3 kg
[2020-05-16 21:09] LABS: BASOPHILS ABSOLUTE AUTO 0.03 K/mm3 (0.00-0.23); BASOPHILS PERCENT AUTO 0 % (0-2); EOSINOPHILS ABSOLUTE AUTO 0.17 K/mm3 (0.00-0.68); EOSINOPHILS PERCENT AUTO 2 % (0-6); Hematocrit 33.1 % (37.0-53.0); IMMATURE GRAN ABSOLUTE AUTO 0.03 K/mm3 (0.00-0.10); IMMATURE GRAN PERCENT AUTO 0 % (0-1); LYMPHOCYTES PERCENT AUTO 12 % (21-46); MONOCYTES ABSOLUTE AUTO 0.63 K/mm3 (0.16-1.47); MONOCYTES PERCENT AUTO 7 % (4-13); Mean Corpuscular HGB 23.6 pg (26.0-34.0); Mean Corpuscular HGB Conc 30.2 g/dL (31.5-36.5); Mean Corpuscular Volume 78 fL (80-100); Mean Platelet Volume 9.9 fL (9.1-12.4); NEUTROPHILS ABSOLUTE AUTO 6.69 K/mm3 (1.96-9.15); NEUTROPHILS PERCENT AUTO 78 % (41-73); Platelet Count 415 K/mm3 (150-400); RDW Coefficient Variation 19.9 % (11.7-14.2); RDW Standard Deviation 53.8 fL (35.1-46.3); Red Blood Cell Count 4.24 M/mm3 (4.30-5.90); White Blood Cell Count 8.55 K/mm3 (4.00-11.30)
[2020-05-16 21:28] LABS: Alanine Aminotransfer (ALT/SGP 15 U/L (12-78); Albumin, Blood 3.1 g/dL (3.4-5.0); Albumin/Globulin Ratio 0.7 (0.8-1.8); Alk Phos 85 U/L (50-136); Anion Gap 5 mmol/L (6-16); Aspartate Aminotrans (AST/SGOT 22 U/L (12-37); Bilirubin, Total 0.3 mg/dL (0.1-1.0); Blood Urea Nitrogen 10 mg/dL (8-24); Bun/Creatinine Ratio 7.2 (12.0-20.0); CO2, Blood 31 mmol/L (21-32); Calcium, Blood 8.3 mg/dL (8.5-10.1); Chloride, Blood 106 mmol/L (98-108); Creatinine, Blood 1.38 mg/dL (0.60-1.20); Ethanol (Alcohol), Blood, Med 11 mg/dL; Globulin, Blood 4.3 g/dL (2.2-4.0); Glomerular Filtration Rate 53 (60-); Glucose, Blood 92 mg/dL (70-99); Potassium, Blood 2.5 mmol/L (3.5-5.5); Salicylate 36.2 mg/dL (2.8-20.0); Sodium, Blood 142 mmol/L (136-145); Total Protein, Blood 7.4 g/dL (6.4-8.2)
[2020-05-16 21:45] LABS: Acetaminophen, Random <2.0 ug/mL (10.0-30.0)
[2020-05-16 21:49] LABS: Source, Urine Clean Catch
[2020-05-16 22:05] LABS: Appearance, Urine Clear (Clear); Bilirubin, Urine Neg (Neg); Blood, Urine 1+ (Neg); Color, Urine Yellow (P-Yellow); Glucose Qualitative, Urine Neg (Neg); Ketones, Urine Neg (Neg); Leukocyte Esterase, Urine Neg (Neg); Nitrite, Urine Neg (Neg); Protein, Urine 2+ (Neg); Urobilinogen, Urine NORM (Normal); pH, Urine 6.5 (5.0-8.0)
[2020-05-16 22:47] LABS: U Amphetamine Screen Not Detected; U Barbituate Screen Not Detected; U Benzodiazapine Screen Not Detected; U Buprenorphine Screen Not Detected; U Cannabinoids Screen Not Detected; U Cocaine Screen Not Detected; U Methadone Screen Not Detected; U Methamphetamine Screen Not Detected; U Opiates Screen Not Detected; U Oxycodone Screen Not Detected; U Phencyclidine Screen Not Detected; U Propoxyphene Screen Not Detected
[2020-05-16 23:04] LABS: Red Blood Cells, Urine Not Seen /hpf (0-2)
[2020-05-16 23:05] LABS: Bacteria Few /hpf; Mucus Light (0-Heavy); Squamous Epithelial Cells Few /hpf (Few)
--- NOTE | 2020-05-17 05:33 | NUR ---
SHIFT SUMMARY- PT. NEW ADMISSION FROM ED. PLEASANTLY CONFUSED WITH HX OF DEMENTIA. PT. HAS UNSTEADY GAIT, 1 ASSIST TO BATHROOM. CONT/INCONT, ATTENDS IN PLACE. HAD NO COMPLAINTS T/O THE NIGHT. K=2.5, REPLACED WITH PO K. IV FLUIDS INFUSING, TOLERATING WELL. PT. IMPULSIVE, BED ALARM ON FOR SAFETY. VSS. CALL LIGHT WITHIN REACH AND SIDE RAILS UPX2. WILL CONT TO MONITOR.
[2020-05-17 05:35] LABS: BASOPHILS ABSOLUTE AUTO 0.04 K/mm3 (0.00-0.23); BASOPHILS PERCENT AUTO 1 % (0-2); EOSINOPHILS ABSOLUTE AUTO 0.18 K/mm3 (0.00-0.68); EOSINOPHILS PERCENT AUTO 3 % (0-6); Hematocrit 30.4 % (37.0-53.0); IMMATURE GRAN ABSOLUTE AUTO 0.02 K/mm3 (0.00-0.10); IMMATURE GRAN PERCENT AUTO 0 % (0-1); LYMPHOCYTES ABSOLUTE AUTO 1.01 K/mm3 (0.84-5.20); LYMPHOCYTES PERCENT AUTO 16 % (21-46); MONOCYTES ABSOLUTE AUTO 0.51 K/mm3 (0.16-1.47); MONOCYTES PERCENT AUTO 8 % (4-13); Mean Corpuscular HGB 23.2 pg (26.0-34.0); Mean Corpuscular HGB Conc 29.6 g/dL (31.5-36.5); Mean Corpuscular Volume 78 fL (80-100); Mean Platelet Volume 10.1 fL (9.1-12.4); NEUTROPHILS ABSOLUTE AUTO 4.71 K/mm3 (1.96-9.15); NEUTROPHILS PERCENT AUTO 73 % (41-73); Platelet Count 379 K/mm3 (150-400); RDW Standard Deviation 53.9 fL (35.1-46.3); Red Blood Cell Count 3.88 M/mm3 (4.30-5.90); White Blood Cell Count 6.47 K/mm3 (4.00-11.30)
[2020-05-17 05:59] LABS: Albumin, Blood 2.5 g/dL (3.4-5.0); Albumin/Globulin Ratio 0.7 (0.8-1.8); Bilirubin, Total 0.3 mg/dL (0.1-1.0); Bun/Creatinine Ratio 7.6 (12.0-20.0); Calcium, Blood 8.2 mg/dL (8.5-10.1); Creatinine, Blood 1.32 mg/dL (0.60-1.20); Globulin, Blood 3.6 g/dL (2.2-4.0); Potassium, Blood 2.7 mmol/L (3.5-5.5); Total Protein, Blood 6.1 g/dL (6.4-8.2)
[2020-05-17 07:55] LABS: Source, Urine Clean Catch
[2020-05-17 08:18] LABS: Appearance, Urine Clear (Clear); Bilirubin, Urine Neg (Neg); Blood, Urine 1+ (Neg); Color, Urine Yellow (P-Yellow); Glucose Qualitative, Urine Neg (Neg); Ketones, Urine Neg (Neg); Leukocyte Esterase, Urine Neg (Neg); Nitrite, Urine Neg (Neg); Protein, Urine 2+ (Neg); Specific Gravity, Urine 1.005 (1.003-1.022); Urobilinogen, Urine NORM (Normal)
[2020-05-17 08:31] LABS: Bacteria Not Seen /hpf; Red Blood Cells, Urine 0-2 /hpf (0-2); Squamous Epithelial Cells Not Seen /hpf (Few); White Blood Cells, Urine 0-2 /hpf (0-5)
[2020-05-17 11:49] LABS: Albumin, Blood 2.5 g/dL (3.4-5.0); Anion Gap 3 mmol/L (6-16); Blood Urea Nitrogen 9 mg/dL (8-24); Bun/Creatinine Ratio 7.3 (12.0-20.0); CO2, Blood 33 mmol/L (21-32); Calcium, Blood 7.6 mg/dL (8.5-10.1); Chloride, Blood 111 mmol/L (98-108); Creatinine, Blood 1.24 mg/dL (0.60-1.20); Glomerular Filtration Rate 60 (60-); Glucose, Blood 86 mg/dL (70-99); Magnesium, Blood 2.4 mg/dL (1.6-2.4); Potassium, Blood 2.8 mmol/L (3.5-5.5); Sodium, Blood 147 mmol/L (136-145)
--- NOTE | 2020-05-17 18:44 | NUR ---
HE SLEPT THE FIRST 8 HRS OF THE SHIFT EXCEPT FOR WALKING TO THE BATHROOM WITH SBA TO VOID. HE DID NOT USE THE CALL LIGHT. HE SET OFF HIS BED ALARM. HE LATER ATE DINNER. CONSULTED THIS EVENING AND FOUND HIM TO NEED A GUARDIAN. HE REMAINS ON A 2 MD HOLD. HE RECEIVED IV KCL AND KPHOS TODAY FOR ELECTROLYTE IMBALANCE. HE ALSO HAS CLINIMIX INFUSING. HE VOIDED IN THE TOILET THIS AFTERNOON AND THEN HAD A PVR OVER 600. I NOTIFIED THIS EVENING AND ORDERS WERE RECEIVED. A COUDE CATHETER WAS PLACED AND UA SENT. HE ALSO C/O NECK, BACK AND RT ARM PAIN. TYLENOL WAS GIVEN AND INEFFECTIVE. HE IS NOW TRYING A HEATING PAD FOR HIS PAIN. HE DOES NOT TAKE PAIN PILLS AT HOME. HE REMAINS PLEASANTLY CONFUSED.
[2020-05-17 18:45] LABS: Source, Urine Catheter
[2020-05-17 19:01] LABS: Appearance, Urine Clear (Clear); Bilirubin, Urine Neg (Neg); Blood, Urine 1+ (Neg); Color, Urine Yellow (P-Yellow); Glucose Qualitative, Urine Neg (Neg); Ketones, Urine Neg (Neg); Leukocyte Esterase, Urine Neg (Neg); Nitrite, Urine Neg (Neg); Protein, Urine 2+ (Neg); Urobilinogen, Urine NORM (Normal)
[2020-05-17 19:11] LABS: Bacteria Few /hpf; Red Blood Cells, Urine 0-2 /hpf (0-2); Squamous Epithelial Cells Few /hpf (Few); White Blood Cells, Urine 0-2 /hpf (0-5)
[2020-05-18 05:22] LABS: BASOPHILS ABSOLUTE AUTO 0.02 K/mm3 (0.00-0.23); BASOPHILS PERCENT AUTO 0 % (0-2); EOSINOPHILS ABSOLUTE AUTO 0.14 K/mm3 (0.00-0.68); EOSINOPHILS PERCENT AUTO 3 % (0-6); Hematocrit 28.9 % (37.0-53.0); Hemoglobin 8.7 g/dL (13.5-17.5); IMMATURE GRAN ABSOLUTE AUTO 0.02 K/mm3 (0.00-0.10); IMMATURE GRAN PERCENT AUTO 0 % (0-1); LYMPHOCYTES ABSOLUTE AUTO 0.64 K/mm3 (0.84-5.20); LYMPHOCYTES PERCENT AUTO 12 % (21-46); MONOCYTES ABSOLUTE AUTO 0.43 K/mm3 (0.16-1.47); MONOCYTES PERCENT AUTO 8 % (4-13); Mean Corpuscular HGB 23.8 pg (26.0-34.0); Mean Corpuscular HGB Conc 30.1 g/dL (31.5-36.5); Mean Corpuscular Volume 79 fL (80-100); Mean Platelet Volume 9.9 fL (9.1-12.4); NEUTROPHILS ABSOLUTE AUTO 4.33 K/mm3 (1.96-9.15); NEUTROPHILS PERCENT AUTO 78 % (41-73); Platelet Count 340 K/mm3 (150-400); RDW Coefficient Variation 20.1 % (11.7-14.2); RDW Standard Deviation 55.4 fL (35.1-46.3); Red Blood Cell Count 3.66 M/mm3 (4.30-5.90); White Blood Cell Count 5.58 K/mm3 (4.00-11.30)
[2020-05-18 05:42] LABS: Alanine Aminotransfer (ALT/SGP 11 U/L (12-78); Albumin, Blood 2.4 g/dL (3.4-5.0); Albumin/Globulin Ratio 0.7 (0.8-1.8); Alk Phos 66 U/L (50-136); Anion Gap 3 mmol/L (6-16); Aspartate Aminotrans (AST/SGOT 19 U/L (12-37); Bilirubin, Direct <0.1 mg/dL (0.0-0.3); Bilirubin, Indirect Unable to Calculate mg/dL (0.1-0.7); Bilirubin, Total 0.3 mg/dL (0.1-1.0); Blood Urea Nitrogen 13 mg/dL (8-24); Bun/Creatinine Ratio 11.1 (12.0-20.0); CO2, Blood 33 mmol/L (21-32); CPK Creatine Kinase 124 U/L (39-308); Calcium, Blood 7.5 mg/dL (8.5-10.1); Chloride, Blood 110 mmol/L (98-108); Creatinine, Blood 1.17 mg/dL (0.60-1.20); Globulin, Blood 3.5 g/dL (2.2-4.0); Glomerular Filtration Rate >60 (60-); Glucose, Blood 101 mg/dL (70-99); Magnesium, Blood 2.6 mg/dL (1.6-2.4); Phosphorus, Blood 2.3 mg/dL (2.5-4.9); Potassium, Blood 3.1 mmol/L (3.5-5.5); Prostate Specific Antigen 0.186 ng/mL (0.000-4.000); Sodium, Blood 146 mmol/L (136-145); Total Protein, Blood 5.9 g/dL (6.4-8.2); Uric Acid, Blood 1.2 mg/dL (3.5-7.2)
--- NOTE | 2020-05-18 05:49 | NUR ---
SHIFT SUMMARY- PT. GIVEN FIRST DOSE OF SEROQUEL LAST NIGHT. HEAVILY SLEEPING/SNORING T/O THE SHIFT. SATS 87% THIS AM. PLACED PT. ON 2L O2 NC, INCREASED TO 94%. CLINIMIX INFUSING, PT. TOLERATING WELL. DHALIWAL CATHETER PATENT AND DRAINING. NO ACUTE DISTRESS. CALL LIGHT WITHIN REACH, SIDE RAILSX3, AND BED ALARM ON FOR SAFETY. WILL CONT TO MONITOR.
--- NOTE | 2020-05-18 10:59 | NUR ---
HE HAS BEEN TOO SLEEPY TO TAKE IN PO MEALS OR PO MEDS. HE OPENS HIS EYES WHEN I REPEAT HIS NAME AND TOUUCH HIM BUT JUST CURLS UP MORE AND CLOSES HIS EYES AND WANTS TO SLEEP. HE WAS LIKE THIS YESTERDAY TOO. THE DIFFERENCE WAS THE GARBAGE COLLECTION SUPERVISOR. THE NIGHT NURSE INDICATED THAT HE SLEPT VERY HEAVY AND IT WAS SO DIFFERENT THAN THE NIGHT BEFORE. I JUST NOTIFIED . HE SAYS TO TRY SEROQUEL 12.5 MG TONIGHT INSTEAD OF 25 MG. BED ALARM ON. IV KCL GIVEN AND THE KPHOS INFUSION ALMOST DONE. CLINIMIX IS ONGOING.
--- NOTE | 2020-05-18 18:44 | NUR ---
HE WOKE UP MID-AFTERNOON AND WAS HUNGRY FOR CANDY. HE ATE A CHOCOLATE PUDDING. HE WENT TO CT FOR A LOOK AT HIS PELVIS. HE ATE DINNER WELL THIS EVENING. HE REMAINS PLEASANTLY CONFUSED. NITHIN, HIS DAUGHTER CALLED TWICE TODAY AND THEN I CALLED HER JUST NOW. AFTER SPEAKING WITH ROBI THE MULTIGRAPH OPERATOR, I FIND THAT SHE HAS HAD EXTENSIVE CONVERSATIONS WITH NITHIN ABOUT HIS IMPENDING DISCHARGE. CARE MANAGEMENT AND ARE THINKING THAT NITHIN IS PICKING HER DAD UP TOMORROW AND TAKING HIM TO HER HOME AND THEN FLYING HIM TO [place] TO HIS SON ANTONETTE'S HOUSE TO LIVE. NITHIN SAYS THERE IS NO MONEY FOR THAT. SHE SAYS ANTONETTE IS WILLING TO BE HIS P.O.A. AND CARE FOR HIM.
--- NOTE | 2020-05-18 20:46 | NUR ---
PT PULLED OUT IV AND ATTEMPTED TO PULL OUT DHALIWAL AND CLIMB OOB; Primo CAMPBELL, LIGHTING SPECIALIST, NOTIFIED WITH ORDERS FOR BILL VEST RECEIVED.
--- NOTE | 2020-05-19 04:05 | NUR ---
SHIFT SUMMARY: 79 Y/O MALE VERY ANXIOUS AT BEGINNING OF SHIFT AND PULLED OUT IV WHILE ATTEMPTING TO CLIMB OOB AND PULL OUT DHALIWAL CATHETER; PT WOULD NOT FOLLOW ANY DIRECTIONS FROM NURSING STAFF; PT WAS GIVEN HALDOL 3MG IVP WITH GOOD RESULTS; PT WAS ALSO PLACED IN BILATERAL SOFT WRIST RESTRAINTS AND BILL VEST; CLINIX INFUSING WITHOUT ISSUE AFTER IV RESTARTED; DHALIWAL DRAINING CLEAR YELLOW FLUID; ALERT TO PERSON ONLY; PT HAS FAMILY POSSIBLY VISITING TODAY FROM [facility] TO RELOCATE PATIENT TO LIVE WITH FAMILY MEMBERS; BED ALARM APPLIED, BED LOW POSITION WITH CALL LIGHT AT SIDE.
[2020-05-19 05:03] LABS: Hemoglobin 8.7 g/dL (13.5-17.5)
[2020-05-19 05:24] LABS: Anion Gap 2 mmol/L (6-16); Blood Urea Nitrogen 14 mg/dL (8-24); CO2, Blood 33 mmol/L (21-32); Chloride, Blood 108 mmol/L (98-108); Creatinine, Blood 1.14 mg/dL (0.60-1.20); Glucose, Blood 91 mg/dL (70-99); Magnesium, Blood 2.6 mg/dL (1.6-2.4); Potassium, Blood 3.4 mmol/L (3.5-5.5); Sodium, Blood 143 mmol/L (136-145)
[2020-05-19 05:25] LABS: Albumin, Blood 2.5 g/dL (3.4-5.0); Bun/Creatinine Ratio 12.3 (12.0-20.0); Calcium, Blood 7.6 mg/dL (8.5-10.1); Glomerular Filtration Rate >60 (60-)
--- NOTE | 2020-05-19 08:03 | NUR ---
ADVISED BLD PRESS 177/100. PLACE ON TELE. LABETELOL 10 MG IV Q 6 HOURS PRN SYS >160
--- NOTE | 2020-05-19 17:02 | NUR ---
ALERT TO SELF. TELE ON AND PER TECH SR IN 'S. WRIST RESTRAINTS OFF, BUT BILL ON. HAVE BEEN ABLE TO REDIRECT PATIENT SO FAR TO NOT PULL OUT IV OR DHALIWAL. PATIENT TRIES MULTIPLE TIMES TO PULL AT ALL MEDICAL EQUIPMENT. TRIES TO GET OUT OF BED OFTEN. CAMERA ON. [facility]
--- NOTE | 2020-05-20 04:37 | NUR ---
BUNK HOUSE WORKER SUMMARY PT AAOX1, FOLLOWS MOST DIRECTION BUT REMAINS VERY CONFUSED AND RESTLESS. PT CONSTANTLY PULLING OFF TELE, PULLING AT IV LINES AND DHALIWAL CATHETER. PT ALSO ATTEMPTING NUMEROUS TIMES TO GET OUT OF BED TO "GO TO THE STORE". RECIEVED ORDER FROM DR VELASQUEZ FOR ADDITIONAL 25 MG SEROQUEL FOR PT WHICH HAD NO EFFECT. SPOKE WITH DR VELASQUEZ AGAIN AND RECIEVED ORDER FOR 2MG IV HALDOL WHICH DID HELP PT RELAX A BIT BUT PT STILL FIDLING WITH BEDDING AND RESTRAINTS THROUGH THE NIGHT. REMAINS IN BILL VEST. HYPERTENSIVE WITH SBP 170'S, GIVEN PO HYDRALAZINE WHICH GALINDO SBP TO 160'S. SBP REMAINS HIGH 160'S THIS AM, WILL GIVE IV LABETALOL PER EMAR. OTHER VSS, WILL CONTINUE TO MONITOR.
[2020-05-20 05:17] LABS: Hematocrit 31.2 % (37.0-53.0); Hemoglobin 9.3 g/dL (13.5-17.5)
[2020-05-20 05:37] LABS: Albumin, Blood 2.7 g/dL (3.4-5.0); Anion Gap 5 mmol/L (6-16); Blood Urea Nitrogen 12 mg/dL (8-24); Bun/Creatinine Ratio 11.5 (12.0-20.0); CO2, Blood 27 mmol/L (21-32); Calcium, Blood 7.7 mg/dL (8.5-10.1); Chloride, Blood 109 mmol/L (98-108); Creatinine, Blood 1.04 mg/dL (0.60-1.20); Glomerular Filtration Rate >60 (60-); Glucose, Blood 91 mg/dL (70-99); Magnesium, Blood 2.5 mg/dL (1.6-2.4); Phosphorus, Blood 2.3 mg/dL (2.5-4.9); Sodium, Blood 141 mmol/L (136-145)
--- NOTE | 2020-05-20 18:48 | NUR ---
ALERT TO SELF AND FAMILY. RESTRAINTS D'C. DOES NOT ALWAYS FOLLOW DIRECTIONS, BUT SEEMS TO BE REDIRECTABLE. THINKS HE IS AT HIS HOME. DID HAVE A CHANCE TO TALK TO HIS ROOMMATE TODAY. POSSIBLE D'C HOME WITH DAUGHTER CHECKING IN ON HIM AT NIGHT. PER DAUGHTER, NITHIN, THEY HAVE TAKEN HIS CAR AND CORTNEY AWAY SO HE CAN NOT DRIVE. TELE ON. REPORT TO NIGHT RN.
--- NOTE | 2020-05-21 05:15 | NUR ---
GIS ADMINISTRATOR SUMMARY PT MORE ORIENTED TONIGHT. HAS REMAINED OUT OF ALL RESTRAINTS. PT ONLY ATTEMPTED TO GET OOB A FEW TIMES AND WAS EASILY REDIRECTED. DENIES PAIN, SOB, N/V. PT LOST IV ACCESS ON DAY SHIFT, PT WAS NOT VERY HAPPY ABOUT THE IDEA OF STARTING A NEW IV. PER DAY SHIFT RN PT ATE MOST OF HIS MEALS THROUGH THE DAY. SPOKE WITH DR VELASQUEZ WHO GAVE ORDER TO DC PT'S CLINIMIX AND TO LEAVE IV OUT. ALSO OK TO DC TELE, PER FIRE PILOT NO CHANGES FOR SEVERAL DAYS. HYPERTENSIVE THIS AM, WILL GIVE PO HYDRALAZINE. OTHER VSS, WILL CONTINUE TO MONITOR.
[2020-05-21 05:31] LABS: Hematocrit 33.8 % (37.0-53.0)
[2020-05-21 05:54] LABS: Albumin, Blood 2.8 g/dL (3.4-5.0); Anion Gap 4 mmol/L (6-16); Blood Urea Nitrogen 13 mg/dL (8-24); Bun/Creatinine Ratio 12.1 (12.0-20.0); CO2, Blood 26 mmol/L (21-32); Calcium, Blood 8.5 mg/dL (8.5-10.1); Chloride, Blood 109 mmol/L (98-108); Creatinine, Blood 1.07 mg/dL (0.60-1.20); Glomerular Filtration Rate >60 (60-); Glucose, Blood 92 mg/dL (70-99); Magnesium, Blood 2.5 mg/dL (1.6-2.4); Phosphorus, Blood 2.2 mg/dL (2.5-4.9); Potassium, Blood 4.6 mmol/L (3.5-5.5); Sodium, Blood 139 mmol/L (136-145)
--- NOTE | 2020-05-21 17:06 | NUR ---
SUMMARY PT IS A/O X1-2, HE IS ABLE TO STATE WHERE HE IS, RECOGNIZES FAMILY HOWEVER WHEN ASKED DATE STATE IT IS "AUGUST", UNABLE TO REORIENT TO DATE OR YEAR. HE DEMONSTARATES ODD BEHAVIOR @ X'S, FLAT/WITHDRAWN AFFECT. HE HAS FOR THE MOST PART DECLINED OOB HOWEVER THIS AFTERNOON DIRECTOR OF CURRICULUM AND INSTRUCTION REPORT PT GOT UP, AMBULATED TO BR, +BM, OFFERED SHOWER HOWEVER PT DECLINE THEN GO BACK TO BED. APPETITE CONTINUES POOR HOWEVER HE HAS EATEN PORTIONS OF MEALS. ASK FOR PEPSI THIS AFTERNOON. DR CROOKS & CARE MANAGERS WORKING w FAMILY TO ARRANGE SAFE D/C. VSS.
--- NOTE | 2020-05-22 01:19 | NUR ---
PT SHOWING INCREASED AGGITATION AND CONFUSION, NURSE NOTIFIED
[2020-05-22 05:22] LABS: Hematocrit 32.1 % (37.0-53.0); Hemoglobin 9.6 g/dL (13.5-17.5)
[2020-05-22 05:36] LABS: Albumin, Blood 2.7 g/dL (3.4-5.0); Anion Gap 5 mmol/L (6-16); Blood Urea Nitrogen 19 mg/dL (8-24); Bun/Creatinine Ratio 16.5 (12.0-20.0); CO2, Blood 25 mmol/L (21-32); Calcium, Blood 8.6 mg/dL (8.5-10.1); Chloride, Blood 108 mmol/L (98-108); Creatinine, Blood 1.15 mg/dL (0.60-1.20); Glomerular Filtration Rate >60 (60-); Glucose, Blood 92 mg/dL (70-99); Magnesium, Blood 2.5 mg/dL (1.6-2.4); Potassium, Blood 4.5 mmol/L (3.5-5.5); Sodium, Blood 138 mmol/L (136-145)
--- NOTE | 2020-05-22 05:45 | NUR ---
INORGANIC CHEMICAL TECHNICIAN SUMMARY NO ACUTE CHANGES. PT AAOX2, COMMUNICATES WITH STAFF BUT IS STILL QUITE CONFUSED. BED ALARM REMAINS ON PT IS QUITE IMPULSIVE AND HAS ATTEMPTED TO GET OUT OF BED MULTIPLE TIMES WITHOUT ASSISTANCE. PT FORGETS HE IS IN THE HOSPITAL AND USUALLY DENIES THAT HE IS IN THE HOSPITAL. PT HAS REMAINED OUT OF RESTRAINTS THROUGH THE NIGHT. GAVE TYLENOL X1 FOR HEADACHE. VSS, WILL CONTINUE TO MONITOR.
--- NOTE | 2020-05-22 17:24 | NUR ---
SUMMARY PT IS A/O X1, FORGETFUL/CONFUSED. HE @ X'S IS EMOTIONAL, TEARFUL, MAKES FAITH STATEMENTS. BEHAVIOR HAS BEEN MANAGEABLE HOWEVER @ X'S ATTEMPTS UP W/O ASSIST, PULL @ DHALIWAL LINE, WAKES CONFUSED THINKING HE HAS TO LEAVE & FULFILL OBLIGATIONS, REQUIRES REORIENT/REASSURANCE/REDIRECTION, GENERALLY COOPERATIVE & REDIRECTABLE T/O DAY. DEHYDRATION & HYPOCALCEMIA HAVE RESOLVED. APPETITE HAS BEEN POOR TODAY, MEDIA CENTER ASSISTANT NOTIFIED HE DOES NOT EAT RED MEAT. VSS DR CROOKS & CAREMANGEMENT TEAM ATTEMPTING SAFE D/C HOWEVER POOR FAMILY SUPPORT @ THIS TIME, D/C DELAYED.
--- NOTE | 2020-05-22 19:54 | NUR ---
AWAKENED AT SHIFT CHANGE. STATED HE WASNTED TO SLEEP. CALL LIGHT IN REACH
--- NOTE | 2020-05-23 04:03 | NUR ---
SHIFT SUMMARY HAS BEEN AWAKE AT INTERVALS THIS SHIFT. MULTIPLE ATTEMPTS TO BET OUT OF BED TO "GO HOME" TO GET FOOD, TO DO THINGS HE FELT NEEDED. MULTIPLE ATTEMPTS TO REDIRECT HIM BACK TO BED FOR SAFETY HE IS A HIGH FALL RISK. BED ALARM ON. CALL LIGHT IN REACH. CURRENTLY RESTING QUIETLY.
[2020-05-23 05:09] LABS: Hematocrit 29.1 % (37.0-53.0); Hemoglobin 8.6 g/dL (13.5-17.5)
[2020-05-23 05:43] LABS: Albumin, Blood 2.6 g/dL (3.4-5.0); Anion Gap 6 mmol/L (6-16); Blood Urea Nitrogen 26 mg/dL (8-24); Bun/Creatinine Ratio 23.4 (12.0-20.0); CO2, Blood 25 mmol/L (21-32); Calcium, Blood 8.8 mg/dL (8.5-10.1); Chloride, Blood 106 mmol/L (98-108); Creatinine, Blood 1.11 mg/dL (0.60-1.20); Glomerular Filtration Rate >60 (60-); Glucose, Blood 121 mg/dL (70-99); Magnesium, Blood 2.4 mg/dL (1.6-2.4); Phosphorus, Blood 3.7 mg/dL (2.5-4.9); Potassium, Blood 4.1 mmol/L (3.5-5.5); Sodium, Blood 137 mmol/L (136-145)
--- NOTE | 2020-05-23 17:08 | NUR ---
SHIFT SUMMARY PT SLEEPING THIS AM AT START OF SHIFT. DID NOT WANT TO EAT BREAKFAST. PT LATER WOKE TO EAT LUNCH. CM HERE THIS AM TO DISCUSS PLAN OF CARE. PT TO GO HOME WITH DAUGHTER IN [place] ON [place], DAUGHTER UNABLE TO COME BACK DOWN UNTIL THEN. LATER THIS AFTERNOON, STEP DAUGHTER HERE TO REPORT THAT DAUGHTER IN [place] WILL NOT BE ABLE TO TAKE PT HOME. MORTISING MACHINE OPERATOR NOTIFIED AND CAME TO TO TALK WITH STEP DAUGHTER. NEW PLAN STARTED; GUARDIANSHIP AND PLACEMENT IN PROGRESS. PT SITTING UP IN BED EATING FOOD BROUGHT IN BY STEP DAUGHTER. NO C/O. CALL LT IN REACH. BED ALARM ON FOR SAFETY.
--- NOTE | 2020-05-24 03:57 | NUR ---
SUPERVISOR DRILLING AND SHOOTING SUMMARY ALERT AND ORIENTED TO SELF AND FAMILY. CONFUSED AND SOMEWHAT DIFFICULT TO REDIRECT AT TIMES. PT ATTEMPTING TO PULL ON DHALIWAL CATHETER DURING SHIFT. DENIES PAIN OR DISCOMFORT. NO ACUTE CHANGES NOTED. CURRENTLY APPEARS TO BE SLEEPING IN BED IN THE LOWEST POSITION WITH CALL LIGHT IN REACH. WILL CONTINUE TO MONITOR AND REPORT TO ONCOMING RN.
[2020-05-24 07:12] LABS: Hematocrit 31.1 % (37.0-53.0); Hemoglobin 9.2 g/dL (13.5-17.5)
[2020-05-24 07:30] LABS: Albumin, Blood 2.7 g/dL (3.4-5.0); Anion Gap 4 mmol/L (6-16); Blood Urea Nitrogen 21 mg/dL (8-24); Bun/Creatinine Ratio 20.2 (12.0-20.0); CO2, Blood 27 mmol/L (21-32); Chloride, Blood 110 mmol/L (98-108); Creatinine, Blood 1.04 mg/dL (0.60-1.20); Glomerular Filtration Rate >60 (60-); Glucose, Blood 113 mg/dL (70-99); Magnesium, Blood 2.4 mg/dL (1.6-2.4); Phosphorus, Blood 3.5 mg/dL (2.5-4.9); Potassium, Blood 4.1 mmol/L (3.5-5.5); Sodium, Blood 141 mmol/L (136-145)
--- NOTE | 2020-05-24 17:30 | NUR ---
PT AOX2-2 AND COOPERATIVE OF CARE. PT SPENT MOST OF THE SHIFT SLEEPING AND WOULD ONLY WAKE UP FOR A SHORT PERIOD THEN FALL FAST ASLEEP. PT WOULD NOT STAY AWAKE LONG ENOUGH TO SAFELY GIVEN MORNING MEDICATION. PT IS NOW AWAKE AND REQUESTED PAIN MEDS HE STATED HIS BODY WAS SORE. TREATED PER EMAR. PT THANKED THIS POLYSOMNOGRAPHIC TECHNICIAN FOR HER CARE. PT IS IN BED AT THIS TIME EATING DINNER. WILL KEEP BED ALARM ON AND CONTNUE TO MONITOR.
--- NOTE | 2020-05-24 18:33 | NUR ---
PT IS NOW WANTING TO PULL ON HIS DHALIWAL CATH TUBING. PT REDIRECTED, BUT STILL WANTS TO GO AFTER TO TUBING STATING HE NEEDS TO LEAVE. WILL CONTINUE TO MONITOR.
--- NOTE | 2020-05-25 04:23 | NUR ---
VENEER GLUER SUMMARY ALERT AND ORIENTED TO SELF ONLY. ATTEMPTING TO GET OUT OF BED SEVERAL TIMES AND PULLING ON DHALIWAL CATH TUBING. PT STATED THAT HE NEEDED TO GO TO THE STORE. DIFFICULT TO REDIRECT AT TIMES. HAS APPEARED TO SLEEP SINCE 2329. VSS. NO ACUTE DISTRESS NOTED. BED IN LOWEST POSITION WITH CALL LIGHT IN REACH. WILL CONTINUE TO MONITOR AND REPORT TO ONCOMING RN.
[2020-05-25 04:56] LABS: Hematocrit 31.9 % (37.0-53.0); Hemoglobin 9.3 g/dL (13.5-17.5)
[2020-05-25 05:17] LABS: Albumin, Blood 2.7 g/dL (3.4-5.0); Anion Gap 4 mmol/L (6-16); Blood Urea Nitrogen 20 mg/dL (8-24); CO2, Blood 26 mmol/L (21-32); Calcium, Blood 8.8 mg/dL (8.5-10.1); Chloride, Blood 109 mmol/L (98-108); Creatinine, Blood 0.95 mg/dL (0.60-1.20); Glomerular Filtration Rate >60 (60-); Glucose, Blood 91 mg/dL (70-99); Magnesium, Blood 2.3 mg/dL (1.6-2.4); Phosphorus, Blood 3.5 mg/dL (2.5-4.9); Potassium, Blood 4.2 mmol/L (3.5-5.5); Sodium, Blood 139 mmol/L (136-145)
[2020-05-25 05:30] LABS: Percent Saturation 6.2 % (20.0-50.0)
--- NOTE | 2020-05-25 17:34 | NUR ---
PT AOX2-3 WTIH CONFUSION. PT HAS BEEN SLEEPING ALL DAY AND THEN STARTED TO WAKE UP AROUND 1430. PT WAS THEN ABLE TO TAKE HIS DAILY ORAL MEDICATION HE SLEEPS TO SOUND TO AROUSE WELL WHEN HE IS REALLY SLEEPY. PT HAS STARTED TO PICK AND HIS IV AND DHALIWAL AT THIS TIME AND IS NOW CALLING OUT. BED ALARM IS ON AND CALL LIGHT IS WITHIN REACH.
--- NOTE | 2020-05-26 03:47 | NUR ---
SHIFT SUMMARY ASSUMED CARE OF PT AT 1900. PT IS A/OX1, DENIES N/T IN EXTREMITES. PT IS VERY FORGETFUL AND IMPUSLSIVE. HEART SOUNDS REGULAR, LUNG SOUNDS CLEAR, DENIES SOB/CP. PT HAS A CATHETER, DRAINING WITH GRAVITY, URINE IS CLOUDY AND YELLOW. PT IS A 1P SBA. PT ATTEMPTED TO GET OUT OF BED MULTIPLE TIMES DURING THE NIGHT. PT C/O PAIN T/O THE NIGHT, MEDICATED PER EMAR AND KPAD APPLIED. PT WOULD CALL OUT INTO THE BLUE FOR HELP BUT THEN FORGET WHAT HE NEEDED. PT TRIED TO LEAVE THE FLOOR TO SMOKE A CIGARETTE, PT WAS REDIRECTED AND REMINED THAT HE CANT SMOKE IN THE HOSPITAL. PT THINKS THAT HE IS LEAVING THIS AM. PT DID NOT SLEEP MUCH AT ALL TONIGHT. CALL LIGHT IN REACH, BED IN LOWEST POSTION, BED ALARM ON, CAMERA MONITORING IN PROGRESS.
[2020-05-26 05:27] LABS: Hematocrit 31.2 % (37.0-53.0); Hemoglobin 9.4 g/dL (13.5-17.5)
[2020-05-26 05:48] LABS: Albumin, Blood 2.8 g/dL (3.4-5.0); Anion Gap 6 mmol/L (6-16); Blood Urea Nitrogen 19 mg/dL (8-24); Bun/Creatinine Ratio 17.9 (12.0-20.0); CO2, Blood 26 mmol/L (21-32); Calcium, Blood 8.9 mg/dL (8.5-10.1); Chloride, Blood 107 mmol/L (98-108); Creatinine, Blood 1.06 mg/dL (0.60-1.20); Glomerular Filtration Rate >60 (60-); Glucose, Blood 92 mg/dL (70-99); Magnesium, Blood 2.2 mg/dL (1.6-2.4); Phosphorus, Blood 3.6 mg/dL (2.5-4.9); Potassium, Blood 3.8 mmol/L (3.5-5.5); Sodium, Blood 139 mmol/L (136-145)
--- NOTE | 2020-05-26 16:34 | NUR ---
SHIFT SUMMARY PATIENT MEDICATED X2 FOR PAIN IN RIGHT SHOULDER. KPAD FOR COMFORT. DENIES NAUSEA AND SHORTNESS OF BREATH. UP SBA IN ROOM AND HALLWAY. CONFUSED AND TEARFUL AT TIMES. WANTS HIS CAR, REQUIRES FREQUENT REDIRECTION. DHALIWAL PATENT AND DRAINING.
--- NOTE | 2020-05-27 04:29 | NUR ---
SHIFT SUMMARY ASSUMED CARE OF PT AT 1900. PT IS A/OX2, DENIES N/T IN EXTERMITES. HEART SOUNDS ERGULAR, LUNG SOUNDS CLEAR, DENIES CP/SOB. PT CATHERTER IS DRAINING WITH GRAVITY, URINE CLOUDY AND YELLOW. PT IS 1P SBA IN [address]. PT WAS VERY TEARFUL THIS EVENING AND WANTED TO HUG AND KISS STAFF. PT STATED THAT "GOD TOLD HIM TO". PT MEDICATED FOR PAIN PER EMAR. PT WAS ACTUALLY ABLE TO SLEEP TONIGHT AT ABOUT 2230 AND THEN SLEPT T/O THE NIGHT. CALL LIGHT IN REACH, BED IN LOWEST POSTION.
[2020-05-27 04:44] LABS: Hemoglobin 9.1 g/dL (13.5-17.5)
[2020-05-27 05:05] LABS: Albumin, Blood 2.9 g/dL (3.4-5.0); Anion Gap 5 mmol/L (6-16); Blood Urea Nitrogen 16 mg/dL (8-24); Bun/Creatinine Ratio 15.8 (12.0-20.0); CO2, Blood 27 mmol/L (21-32); Calcium, Blood 9.3 mg/dL (8.5-10.1); Chloride, Blood 110 mmol/L (98-108); Creatinine, Blood 1.01 mg/dL (0.60-1.20); Glomerular Filtration Rate >60 (60-); Glucose, Blood 94 mg/dL (70-99); Magnesium, Blood 2.3 mg/dL (1.6-2.4); Phosphorus, Blood 4.1 mg/dL (2.5-4.9); Potassium, Blood 3.9 mmol/L (3.5-5.5); Sodium, Blood 142 mmol/L (136-145)
--- NOTE | 2020-05-27 16:47 | NUR ---
SHIFT SUMMARY PATIENT MEDCIATED SEVERAL TIMES FOR PAIN IN RIGHT SHOULDER, LIDOCAINE PATCH TO RIGHT SHOULDER, KPAD ON NECK AND BACK. DENIES NAUSEA AND SHORTNESS OF BREATH. PATIENT CONTINUES TO REPORT POOR PAIN CONTROL. CALL TO DR. THEODORE, NEW ORDERS FOR SCHEDULED TYLENOL GIVEN. PATIENT UP SBA. PATIENT FREQUENTLY CONFUSED, ATTEMPTING TO GO IN OTHER PATIENT ROOMS, AND NEEDING REDIRECTION. DHALIWAL PATENT AND DRAINING.
[2020-05-28 04:27] LABS: Hematocrit 31.3 % (37.0-53.0); Hemoglobin 9.2 g/dL (13.5-17.5)
[2020-05-28 04:52] LABS: Albumin, Blood 2.9 g/dL (3.4-5.0); Anion Gap 7 mmol/L (6-16); Blood Urea Nitrogen 17 mg/dL (8-24); Bun/Creatinine Ratio 16.2 (12.0-20.0); CO2, Blood 26 mmol/L (21-32); Calcium, Blood 8.8 mg/dL (8.5-10.1); Chloride, Blood 109 mmol/L (98-108); Creatinine, Blood 1.05 mg/dL (0.60-1.20); Glomerular Filtration Rate >60 (60-); Glucose, Blood 113 mg/dL (70-99); Magnesium, Blood 2.1 mg/dL (1.6-2.4); Phosphorus, Blood 3.3 mg/dL (2.5-4.9); Potassium, Blood 3.3 mmol/L (3.5-5.5); Sodium, Blood 142 mmol/L (136-145)
--- NOTE | 2020-05-28 05:07 | NUR ---
SHIFT SUMMARY PT A/O X 1-2. KNEW THAT HIS ROOMMATE/LANDLORD WAS IN ROOM 346 AND SPENT THE FIRST PART OF THE SHIFT VISITING IN ROOMMATE'S ROOM EATING COOKIES AND WATCHING A MOVIE. PT IS DIFFICULT TO REDIRECT. ATTEMPTS TO HUG AND KISS STAFF AND BECOMES UPSET WHEN TOLD NOT TO. PT IS SBA WHEN OOB. COMPLAINS OF PAIN TO R SHOULDER. MEDICATED X 1 W/ TYLENOL 650 MG AND PROVIDED KPAD. VITAL SIGNS STABLE. PT AWAITING PLACEMENT. NO ACUTE CHANGES THIS SHIFT.
--- NOTE | 2020-05-28 17:38 | NUR ---
SHIFT SUMMARY. ALERT, ORIENTATED TO SELF ONLY. PLEASANT AND COOPERATIVE WITH MOST CARE. PT WITH MEMEORY DEFICITS, EASILY FORGETS CONVERSATION THAT OCCURS ONLY A FEW MINUTES PRIOR. PT BECAME AGITATED THIS AFTERNOON, HE BECAME FIXATED ON GOING TO ANOTHER PT'S ROOM WHO IS A FRIEND OF HIS. PHONE CALL ARRANGED WITH NURSE OF OTHER PT WITH PERMISSION FROM OTHER PATIENT. PT CONTINUED WITH AGITATION IN REGARDS TO GOING TO HIS FRIEND'S ROOM AND WOULD NOT STAY SEATED EVEN AFTER MULTIPLE WALKS IN THE BLUE, DR. THEODORE NOTIFIED, RECIEVED ONE TIME DOSE FOR SEROQUEL 12.5MG PO. MEDICATION GIVEN, SEE MAR, AND PT IS NOW SITTING IN ROOM QUIETLY WATCHING TV. PT HAD TAKEN APART DHALIWAL CATHETER FROM BAG TWICE THIS SHIFT, HE REPORTED THAT HE WAS LEAVING, PT WAS REDIRECTED AND CATHETER BAG REATTACHED WITH REDIRECTION. PT ATTEMPTED TO REMOVE IV TWICE THIS SHIFT, THIS RN WAS ABLE TO REDIRECT PT TO NEED OF IV AND PT ALLOWED THIS RN TO REWRAP WITH COBAN, DRESSING REMAINED INTACT. NO N/V. PT REPORTED CONSTANT PAIN TO NECK AND SHOULDER, PT REPORTED RELIEF WITH APAP, LIDOCAINE PATCH PLACED THIS AM. NO OTHER CHANGES OR CONCERNS.
--- NOTE | 2020-05-28 20:25 | NUR ---
ASSUMED CARE. ANTONETTE WAS SLEEPING, WOKE UP EASILY TO HIS NAME. ALERT TO SELF, AND FOLLOWS DIRECTION. TALKS A LOT ABOUT GOD AND IS AFRAID THAT HE IS NOT DOING WELL. HE EVEN ASKED IF HE WOULD STILL BE ALIVE IN THE MORNING. PROVIDED COMFORT AND REASSURANCE THAT HELPED HIM TO EASE OUT OF THE CRYING. HE ASKED FOR PAIN MEDS, INFORMED HIM IT IS NOT TIME YET THAT i WILL BRING THEM TO HIM WHEN IT IS AVAILABLE. HE TOOK HIS OTHER MEDICATION WITH NO PROBLEMS. HEATING PAD PLACED ON SHOULDER AND NECK. CATHETER PATENT AND DRAINING. VS WNL. BED ALARM IS ON AND CALL LIGHT IN REACH.
--- NOTE | 2020-05-28 22:23 | NUR ---
ANTONETTE IS BACK TO SLEEP, TURNED OUT THE LIGHTS, BED ALARM IS ON. CALL LIGHT NEXT TO HEAD.
--- NOTE | 2020-05-29 00:28 | NUR ---
CALLED THE DOCTOR ANTICIPATING ANTONETTE HAVING AN EPISODE LIKE TODAY. ORDER FOR PRN SEREQUEL RECEIVED. I GOT OFF THE PHONE ANTONETTE WAS AWAKE AND INSISTING ON BEING UP AND LEAVING. HE REMOVED HIS CATHETER BAG FROM THE TUBING, AND WANTED TO GET HIS PANTS ON TO LEAVE. TRIED TO RE-ORIENT HIM AND HE WOULD NOT. WAS ABLE TO GIVE THE EXTRA DOSE OF SEREQUEL ALONG WITH PAIN MEDS. THEN DISTRACTED HIM WITH OTHER CONVERSATION, AND GOT HIM BACK TO BED. BED ALARM IS ON, HE IS EATING A COOKIE AND WATCHING TV.
--- NOTE | 2020-05-29 05:59 | NUR ---
SHIFT SUMMARY: ALERT AND ORIENTED TO SELF. REPORTED PAIN ALL THE TIME IN SHOULDER AND NECK. SLEPT AT START OF SHIFT, THEN WOKE UP TRYING AND INSISTING HE HAD TO LEAVE, GET DRESS AND DO ERRANDS. HE EVEN PULLED OFF THE CATHTER BAG AND THERE FOR A WHILE DID NOT ALLOW US TO HOOK IT BACK UP. EVENTUALLY WITH DISTRACTIONS WAS ABLE TO GET HIM BACK TO BED AND CATHETER PUT BACK ON. GOT ORDER BY HOSPITALIST FOR EXTRA SERQUEL WHICH WAS GIVEN. ANTONETTE HAS SLEPT REST OF THE NIGHT. DID NOT DO 0400 LABS TO ALLOW HIM TO SLEEP. BED ALARM IS ON, CALL LIGHT IN REACH.
[2020-05-29 08:21] LABS: Hematocrit 33.3 % (37.0-53.0); Hemoglobin 9.8 g/dL (13.5-17.5)
[2020-05-29 08:42] LABS: Anion Gap 5 mmol/L (6-16); Blood Urea Nitrogen 11 mg/dL (8-24); Bun/Creatinine Ratio 12.3 (12.0-20.0); CO2, Blood 28 mmol/L (21-32); Calcium, Blood 9.4 mg/dL (8.5-10.1); Chloride, Blood 112 mmol/L (98-108); Creatinine, Blood 0.89 mg/dL (0.60-1.20); Glomerular Filtration Rate >60 (60-); Glucose, Blood 96 mg/dL (70-99); Magnesium, Blood 2.2 mg/dL (1.6-2.4); Phosphorus, Blood 3.4 mg/dL (2.5-4.9); Potassium, Blood 3.6 mmol/L (3.5-5.5); Sodium, Blood 145 mmol/L (136-145)
--- NOTE | 2020-05-29 14:30 | NUR ---
PT ATTEMPTING TO LEAVE HOSPITAL PT VERY AGITATED AND DISTRAUGHT ABOUT NOT BEING ABLE TO LEAVE OR GO SEE HIS FRIEND IN THE HOSPITAL. DESPITE REDIRECTION, PT DRESSED HIMSELF IN JEANS AND DISCONNECTED HIS DHALIWAL CATHETER. 3 NURSES, AIDE AND 3 SECURITY GUARDS ACTIVELY REASSURING AND REDIRECTING PT TO SIT DOWN AND STAY. PT INSISTING HE DOES NOT NEED A CATHETER AND HE DOES NOT WANT IT RECONNECTED. STATES "GOD WILL PROTECT HIM FROM GETTING AN INFECTION." PT AGREED TO DC DHALIWAL. LEEROY SAVAGE DC'D DHALIWAL. PT STATING HE WANTS A PILL TO "HELP HIM FEEL BETTER." NANCY, INSURANCE ASSISTANT CALLED DAUGHTER, KELLEY. KELLEY AGREED TO COME VISIT PT THIS EVENING. PT COMFORTED BY PENDING VISIT. AGREEABLE TO STAY IN HOSPITAL UNTIL HIS DAUGHTER COMES TO VISIT. WINDOW DRAPEROLIVER CALLED, CAME TO OFFER SPIRITUAL COUNSELING. PT RECEPTIVE OF WINDOW DRAPER VISIT. CALLED DR THEODORE TO INFORM HER OF EVENT. PER DR THEODORE, CAN DC DHALIWAL CATHETER. IV INFILTRATED EARLIER IN THE DAY. DR THEODORE OKAY'D NO IV ACCESS ORDER. ALSO MADE CHANGES TO SEROQUEL ORDER. PT STILL HAVING INTERMITTENT RESTLESSNESS, BUT COOPERATING WITH REDIRECTION NOW.
--- NOTE | 2020-05-29 18:32 | NUR ---
Initial spiritual care note: Asked by RN to meet with Ben. He was pleasantly confused and quite affectionate--kissing my hand and telling me he loved me. He feels he has somewhere to go. I was able to distract and redirect him for awhile, and we had a pleasant conversation about his олег in God. We prayed together for his friend who is also hospitalized. Ben appears frail. We had an easy rapport, but I doubt he will remember anything about me. I will continue to provide prayer and encouragement as case-load permits.
--- NOTE | 2020-05-29 19:02 | NUR ---
SHIFT SUMMARY PT AxOx3 WITH INTERMITTENT CONFUSION. IRRITABLE AND ANXIOUS BEHAVIORS TODAY. FREQUENT REORIENTING REQUIRED. PT C/O FREQUENTLY OF PAIN IN NECK/SHOULDERS. MEDICATED AND APPLIED HEAT PAD/REPOSITIONING PRN. WANTING TO LEAVE THE HOSPITAL AND CONCERNED ABOUT TAKING CARE OF HIS FRIEND IN THE HOSPITAL. SEE NOTE ON THIS SITUATION. DC'D DHALIWAL CATHETER AND IV ACCESS TODAY. MEDICATIONS CHANGED BY DR THEODORE. PT AMBULATING INDEPENDENTLY. DECREASED APPETITE. VITALS REVIEWED. PT AWAITING VISIT FROM STEP DAUGHTER THIS EVENING. CURRENTLY RESTING IN BED WITH CALL LIGHT IN REACH.
--- NOTE | 2020-05-29 19:20 | NUR ---
ASSUMED CARE. ANTONETTE IS VERY EMOTIONAL. ORIENTED TO SELF. REPORTING PAIN REALLY BAD IN SHOULDER AND NECK. GOT UPSET WHEN I TOLD HIM HE WAS NOT DUE FOR HIS PAIN MEDS TILL 2099. STATES HE CAN'T WAIT THAT LONG. LAYING IN BED, WITH HEATING PAD ON. PULLED OUT HIS CATHTER TODAY. HAS NOT VOIDED SINCE THEN. DENIES NEED TO URINATE. CALLED HOSPITALIST CESAR MORRISSEY, GOT ORDER FOR BLADDER SCAN AND STRAIGHT CATH. REQUESTED ORDER FOR BENGAY PAIN RUB TO HELP WITH PAIN IN BETWEEN PAIN MEDICATIONS. ORDER RECEIVED. WILL APPLY WHEN IT ARRIVES. CALL LIGHT IN REACH.
--- NOTE | 2020-05-30 00:48 | NUR ---
PATIENT CONTINUES TO GO TO THE BATHROOM AND WILL NOT ALLOW THE DOOR OPEN, HE REFUSES TO URINATE IN URINAL. BLADDER SCAN IS ONLY SHOWING 419, BUT NOT SURE IT IS READING CORRECTLY. HE STILL REFUSES TO HAVE A STRAIGHT CATH PERFORMED. DENIES ANY DISCOMFORT.
--- NOTE | 2020-05-30 05:49 | NUR ---
SHIFT SUMMARY: ANTONETTE SILVA ORIENTED TO SELF. HE WAS AMBULATING THE BLUE CONSTANTLY ASKING FOR PAIN MEDICATION, STATING HE HURT SO BAD. CESAR BUSINESS DEVELOPER CALLED AND GOT ORDER FOR SOME BENGAY RUB. HE TOOK HIS MEDS WITH NO PROBLEMS AND LAID DOWN FOR A WHILE. HE SAID THE RUB HELPED SOME. HE WAS UP AND DOWN TO THE BATHROOM AND WOULD NOT ALLOW STAFF IN THE BATHROOM. NEVER HEARD HIM URINATE. BUT HE INSIST THAT HE WAS GOING LARGE AMOUNTS. BLADDER SCAN WAS 447. ALSO GOT ORDER FROM CESAR FOR STRAIGHT CATH IF GREATER THEN 600. HE WOULD REFUSE TO URINATE IN URINAL. SECOND BLADDER SCAN WAS SEVERAL HOURS LATER AND ONLY 419. HE INSISTED HE WAS JUST FINE AND DON'T NEED TO BE CATHERIZED. HE THEN LAID DOWN TO SLEEP AND HAS SLEPT THE REST OF THE NIGHT. VS WNL, AFEBRILE. WILL CONTINUE TO MONITOR TILL DAY SHIFT ARRIVES.
--- NOTE | 2020-05-30 11:28 | NUR ---
PATIENT BLADDER SCAN POST VOID WAS 450cc. NOTIFIED DR THEODORE WHO GAVE NEW ORDERS TO PLACE DHALIWAL CATH IN PATIENT. 400cc OF CLOUDY YELLOW URINE IMMEDIATELY DRAINED. UA SENT TO LAB PER PROTOCOL.
[2020-05-30 11:32] LABS: Source, Urine Catheter
[2020-05-30 11:42] LABS: Appearance, Urine Turbid (Clear); Bilirubin, Urine Neg (Neg); Blood, Urine 5+ (Neg); Color, Urine Yellow (P-Yellow); Glucose Qualitative, Urine Neg (Neg); Ketones, Urine Neg (Neg); Leukocyte Esterase, Urine 3+ (Neg); Nitrite, Urine Neg (Neg); Protein, Urine 3+ (Neg); Specific Gravity, Urine 1.015 (1.003-1.022); Urobilinogen, Urine NORM (Normal)
[2020-05-30 11:50] LABS: White Blood Cells, Urine TNTC /hpf (0-5)
[2020-05-30 11:52] LABS: Bacteria Many /hpf; Squamous Epithelial Cells Rare /hpf (Few)
--- NOTE | 2020-05-30 17:45 | NUR ---
PATIENT HAS BEEN PLEASANT AND COOPERATIVE WITH STAFF. TAKES HIS MEDICATION WITHOUT COMPLICATION. DHALIWAL CATHETER PLACED DUE TO URINARY RETENTION. UA SENT TO THE LAB PER PROTOCOL; URINE IS ALMOST A WHITE COLOR WITH LOTS OF SEDIMENT PRESENT. UTI INDICATED. PATIENT APPEARS TO BE PRETTY STEADY ON HIS FEET. CONSTANTLY REQUESTS PAIN MEDICATION, EVEN IF HE JUST RECEIVED SOME. NO ACUTE CHANGES NOTED THIS SHIFT. PATIENT RESTING IN BED AT THIS TIME. WILL CONTINUE TO MONITOR AND PROVIDE CARE NEEDED.
--- NOTE | 2020-05-31 05:20 | NUR ---
SHIFT SUMMARY: VSS. AFEB. AAOX3. FORGETFUL. REPEATEDLY ASKS FOR PAIN MEDS FOR NECK, R SHOULDER, AND BACK. TYLENOL GIVEN X 2. HOT PACK IN PLACE. PT STATES HELPFUL. TOPICAL BENGAY APPLIED. PT IS CURRENTLY SLEEPING. F/C PATENT AND DRAINING CLOUDY, MUCOUSY, YELLOW URINE. NO ACUTE CHANGES OVERNIGHT. WILL CONT TO MONITOR.
[2020-05-31 07:17] LABS: Glomerular Filtration Rate >60 (60-); Phosphorus, Blood 3.5 mg/dL (2.5-4.9); Potassium, Blood 2.9 mmol/L (3.5-5.5)
--- NOTE | 2020-05-31 18:32 | NUR ---
SHIFT SUMMARY PT SLEEPING LATE THIS MORNING AND DIDN'T WANT TO BE ROUSED TIL HIS DAUGHTER ARRIVED LATE THIS MORNING. IMMEDIATELY STARTED REPORTING SEVERE PAIN TO NECK/SHOULDER/BACK. WOULDN'T MOVE TO TAKE HIS PILLS SAFELY UNTIL IT WAS INSISTED HE SIT UP FOR MEDS. CONTINUED TO REPORT SIGNIFICANT PAIN TO SAME AREAS TIL NEW ORDER FOR SCHEDULED TYLENONL STARTED AND AN EXTRA DOSE GIVEN. AFTER THAT HE SAID THE PAIN WAS MUCH IMPROVED. ALARM SOUND AND PT WAS FOUND ATTEMPTING TO GET TO BATHROOM AND WAS INCONTINENT OF STOOL. SHOWER GIVEN AT THAT TIME. HAS CALLED OUT FREQUENTLY TODAY ASKING FOR VARIOUS THINGS. STATED ONCE OR TWICE HE NEEDED TO GO AND GET HIS CAR AT HIS DAUGHTERS TO PICK HIS FRIEND UP TOMORROW AND GET HIS LICENCE REINSTATED TOMORROW. COULD AT TIMES BE DIFFICULT TO REDIRECT TO OTHER TOPICS. HASN'T BEEN OUT WALKING IN HALLWAY TODAY.
--- NOTE | 2020-06-01 05:39 | NUR ---
SHIFT SUMMARY: AAOX3, FORGETFUL. PERSEVERATES ON CERTAIN TOPICS SUCH PAIN MEDS BUT IS REDIRECTABLE. TYL ADMINISTERED X2 TONIGHT FOR NECK/SHOULDER/BACK PAIN. PT HAS SLEPT WELL THROUGH MUCH OF THE NIGHT. SOUNDED BED ALARM DUE TO STOOL INCONTINENCE, WANTING PAIN MEDS, AND WANTING COOKIES. IS NOT MINDFUL ABOUT F/C TONIGHT AND RISKS ACCIDENTALLY PULLING IT OUT WHEN HE GETS UP OOB INDEPENDENTLY. F/C PATENT AND DRAINING CLOUDY YELLOW URINE. STOOL SOFTENERS HELD DUE TO LOOSE STOOLS TONIGHT. NO ACUTE CONCERNS AT THIS TIME. BED LOW, BED ALARM ON, CALL BUTTON IN REACH. WILL CONT TO MONITOR.
--- NOTE | 2020-06-01 17:44 | NUR ---
SHIFT SUMMARY PT AXO TO SELF, PLACE AND FOLLOWING DIRECTIONS THOUGH FORGETFUL. PT UP AD MIKY IN ROOM. PT COMPLAINED OF PAIN NOT CONTROLLED BY ORDERS, DR VALENCIA NOTIFIED AND NEW MEDICATION ORDERED. SEE MAR. PT DENIES PAIN AT THIS TIME. NO IV IN PLACE. PT EMOTIONAL AND CRYING AT TIMES BUT OVERALL PLEASANT THROUGHOUT THE DAY. BED IN LOW POSITION, CALL LIGHT WITHIN REACH. PT DENIES SOB.
--- NOTE | 2020-06-02 04:25 | NUR ---
shift production supervisor summary pt a/o x3-4 with frequent forgetfulness. pleasantly confused. medicated for pain x2 times tonight. slept most of the night. hager patent and draining cloudy urine. vss. bed in lowest position, call light within reach. vss. no acute changes.
--- NOTE | 2020-06-02 18:09 | NUR ---
SHIFT SUMMARY: NO ACUTE CHANGES TO REPORT THIS SHIFT. PT A&O; HX DEMENTIA, FORGETFUL; CALM AND COOPERATIVE WITH CARE. MEDICATED FOR PAIN PER EMAR. DHALIWAL IN FOR RETENTION; BLADDER TRAINING BEGUN THIS SHIFT. NEPHROLOGY FOLLOWING. WAITING FOR FAMILY TO ARRIVE TO TAKE PT TO [place]. WCTM.
--- NOTE | 2020-06-03 00:10 | NUR ---
PT IS A/O X3 WITH VERY FREQUENT FORGETFULNESS. AFTER I MEDICATED PT FOR PAIN HE WOULD CALL EVERY 5 MIN FOR ANOTHER PAIN MED BECAUSE OF HIS FREQUENT FORGETFULNESS. HEATING PAD PROVIDED FOR BACK PAIN.
--- NOTE | 2020-06-03 04:43 | NUR ---
BARBER APPRENTICE SUMMARY PT A/O X3 WITH FREQUENT FORGETFULNESS. PT COMPLAINED OF PAIN IN BACK, SHOULDERS AND NECK. LIDOCAINE PATCH DID NOT SEEM TO HELP PT HE KEPT COMPLAINING OF PAIN. ADDITIONAL PILLOWS AND HEATING PAD PROVIDED FOR COMFORT. THIS DID NOT SEEM TO HELP. PT'S VS WERE TAKEN WITH ELEVATED TEMP OF 99.8. MEDICATED FOR TEMP AND PAIN WITH TYLENOL WHICH PT WAS ABLE TO FALL ASLEEP NOT LONG AFTER THIS WAS GIVEN. TEMP RE-ASSESSED AND NO LONGER ELEVATED. RN HAS BEEN BLADDER TRAINING PT THROUGHOUT THE SHIFT WITH NO SUCCESS. PT HAS NOT HAD THE SENSATION TO PEE TONIGHT. WILL CONTINUE TO BLADDER TRAIN.
[2020-06-03 04:55] LABS: Hematocrit 31.7 % (37.0-53.0); Hemoglobin 9.5 g/dL (13.5-17.5)
[2020-06-03 05:13] LABS: Albumin, Blood 2.7 g/dL (3.4-5.0); Anion Gap 5 mmol/L (6-16); Blood Urea Nitrogen 15 mg/dL (8-24); Bun/Creatinine Ratio 16.7 (12.0-20.0); CO2, Blood 28 mmol/L (21-32); Calcium, Blood 8.8 mg/dL (8.5-10.1); Chloride, Blood 105 mmol/L (98-108); Glomerular Filtration Rate >60 (60-); Glucose, Blood 80 mg/dL (70-99); Magnesium, Blood 2.2 mg/dL (1.6-2.4); Phosphorus, Blood 3.4 mg/dL (2.5-4.9); Potassium, Blood 3.8 mmol/L (3.5-5.5); Sodium, Blood 138 mmol/L (136-145)
--- NOTE | 2020-06-03 18:40 | NUR ---
SHIFT SUMAMRY: NO ACUTE CHANGES TO REPORT THIS SHIFT. HX DEMENTIA; PT A&O; FORGETFUL. MEDICATED FOR PAIN PER EMAR. DHALIWAL D/C'd ON PRIOR SHIFT; PT SPONTANEOUSLY VOIDING SMALL AMOUNTS; BLADDER SCAN 397ML @ 1400; ORDER FOR STRAIGHT CATH > 600ML. AWAITING PLACEMENT. WCTM.
--- NOTE | 2020-06-04 04:32 | NUR ---
COMPUTER TRAINING SPECIALIST SUMMARY PT A/O X3 WITH FREQUENT FORGETFULNESS. REQUESTS FOR "PAIN PILLS" ALL THE NIGHT OVER THE NIGHT. PT FORGETS HE ALREADY HAS BEEN MEDICATED TIME ALLOWS. HE WOULD ALWAYS HOLD OUT HIS HAND SAYING "CAN YOU GIVE ME A PILL PLEASE". HEATING PAD, PILLOWS PROVIDED FOR SUPPORT. PT IS INCONTINENT AND CONTIENT. BLADDER SCANNED PER ORDER WITH NOT ENOUGH IN BLADDER TO STRAIGHT DOTTIE. VSS. NO ACUTE CHANGES.
--- NOTE | 2020-06-04 17:47 | NUR ---
SHIFT SUMMARY- PT IS ALERT, PLESANT AND COOPERATIVE. HE IS CONFUSED AND OFTEN YELLS OUT FOR HELP. HE REQUESTS PAIN MEDICATION FREQUENTLY BUT WILL SHORTLY FORGET THAT HE RECIEVED IT. HIS APPETITE HAS BEEN POOR. HE HAS BEEN VOIDING AND HAVING A BM. HIS BLADDER SCAN WAS BELOW PRN STRAIGHT CATH ORDERS. HE SLEPT UNTIL ABOUT 10 THIS MORNING AND WAS QUIET AND COOPERATIVE MOST OF THIS SHIFT.
--- NOTE | 2020-06-04 20:25 | NUR ---
PT REFUSED BOWEL MEDS AT [facility].
--- NOTE | 2020-06-05 05:51 | NUR ---
SUMMARY: PT ORIENTED TO SELF AND SURROUNDINGS BUT IS VERY FORGETFULL AND MADE REPEATED REQUESTS FOR THE SAME THINGS W/O ANY AWARENESS OF TIME OR FREQUENCY OF HIS REQUESTS. HE BEGAN SHIFT PAINFUL AND ASKED CONSTANTLY FOR PAIN MEDS DESPITE ALREADY RECIEVING SCHEDULED TYLENOL AND PRN ULTRAM. HE WOULD WANDER INTO HALLS, CORNER STAFF, FOLLOW RN'S INTO OTHER PT'S ROOMS AND ASK FOR MEDS DESPITE REMINDERS AND EDUCATION. AN ADDITIONAL DOSE OF PRN SEROQUEL WAS PROVIDED AFTER SCHEDULED DOSE SEEMED INEFFECTIVE AT PROMOTING SLEEP/REST. HE IS PLEASANT BUT CAN BE BORDERLINE INAPPROPRIATE AT TIMES, TRYING TO KISS AND HUG STAFF EVEN WHEN STAFF INSTRUCT OTHERWISE. PT EVENTUALLY SLEPT FOR A PORTION OF THE NIGHT. HE IS MEDICALLY STABLE AWAITING HIS SON TO TAKE HIM TO [place] PER RN REPORT. VSS/AFEBRILE, NO ACUTE CHANGES. WCTM/REPORT TO DAY RN.
--- NOTE | 2020-06-05 17:21 | NUR ---
SHIFT SUMMARY- PT IS ALERT, PLESANT AND COOPERTATIVE. HE IS REQUESTING PAIN MEDICATIONS FREQUENTLY AND OFTEN FORGETFUL THAT HE HAS RECIEVED THEM. HE SLEPT INTERMITENTLY THROUGHOUT THIS SHIFT. HIS APPETITE HAS BEEN POOR.
--- NOTE | 2020-06-06 04:27 | NUR ---
SUMMARY: PT ORIENTED TO SELF/SURROUNDINGS BUT FORGETFULL AND REQUESTS PAIN MEDS OFTEN. TYLENOL AND ULTRAM RECIEVED PRN FOR TOLERABLE RELIEF OF BACK, NECK AND SHOULDER PAIN. KPAD ALSO IN PLACE. BED ALARM IS ON FOR IMPULSIVITY AND ATTEMPTS TO WANDER INTO OTHER PATIENT'S ROOMS. HE ALSO HAD X1 EPISODE OF WEAKNESS W/DIZZYNESS AND NEARLY FELL. HE WAS SAFELY RETURNED TO BED AND VITALS WERE OBSERVED STABLE AND UNCHANGED. HE CONT'S TO REFUSE BOWEL MEDS WHEN OFFERED AND REPORTED BM YESTERDAY. PT USES URINAL INDEPENDENTLY W/GOOD UO. HE WAS ALSO INCONINENT X1 W/PULLUP AND GOWN CHANGED PRN. STRAIGHT CATH WASN'T REQUIRED D/T BLADDER SCAN 172 MLS, PARAMETERS ARE FOR SCAN >600MLS. NO ACUTE CHANGES, VSS/AFEBRILE. WCTM AND REPORT TO DAY RN.
--- NOTE | 2020-06-06 04:37 | NUR ---
SUMMARY: PT CONFUSED AND SLEPT MAJORITY OF NOCTE. HE DOESN'T ANSWER Q'S APPROPRIATELY BUT IS ABLE TO CONVEY SOME VERY BASIC NEEDS. HE AWOKE FOR PT CARE/ADL'S AND MED ADMINISTRATION. PT TOLERATES PILLS CRUSHED IN APPLESAUCE. TURN SCHEDULE MAINTAINED AND PT IS STIFF/RIGID W/REPOSITIONING. HE DENIED PAIN AND ALL OTHER COMPLAINTS. STAFF ATTEMPTED TO ASSIST PT W/URINAL AND ENCOURAGED VOIDING BUT HE CONT'S TO LACK SENSATION AND/OR ABILITY TO VOID. BLADDER SCAN WAS [address]CATH NOT REQUIRED PER RX TO DO SO WHEN >400 MLS. SCROTUM CONT'S SWOLLEN AND CELLULITIS TO R.ELBOW SEEMS TO BE IMPROVING. NO ACUTE CHANGES, VSS/AFEBRILE. WCTM AND REPORT TO DAY RN.
[2020-06-06 05:08] LABS: Hematocrit 32.9 % (37.0-53.0); Mean Corpuscular HGB 24.4 pg (26.0-34.0); Mean Corpuscular HGB Conc 30.4 g/dL (31.5-36.5); Mean Corpuscular Volume 80 fL (80-100); Mean Platelet Volume 9.5 fL (9.1-12.4); Platelet Count 464 K/mm3 (150-400); RDW Coefficient Variation 23.7 % (11.7-14.2); RDW Standard Deviation 68.2 fL (35.1-46.3); Red Blood Cell Count 4.09 M/mm3 (4.30-5.90); White Blood Cell Count 5.48 K/mm3 (4.00-11.30)
[2020-06-06 05:25] LABS: Anion Gap 7 mmol/L (6-16); Blood Urea Nitrogen 17 mg/dL (8-24); Bun/Creatinine Ratio 14.5 (12.0-20.0); CO2, Blood 27 mmol/L (21-32); Calcium, Blood 9.2 mg/dL (8.5-10.1); Chloride, Blood 103 mmol/L (98-108); Creatinine, Blood 1.17 mg/dL (0.60-1.20); Glomerular Filtration Rate >60 (60-); Glucose, Blood 87 mg/dL (70-99); Sodium, Blood 137 mmol/L (136-145)
--- NOTE | 2020-06-06 15:19 | NUR ---
PATIENT IS COOPERATIVE WITH CARE. HE HAS REMAINED IN BED THROUGHOUT THE DAY. HE IS CURENTLY TALKING ON THE PHONE. PATIENT COMPLAINS OF PAIN, TREATED PER EMAR. BLADDER SCAN SHOWED 652ML OF URINE, STRAIGHT CATHED PER PROTOCOL. PATIENT IS ABLE TO VOID USING THE URINAL BUT HE ONLY PUTS OUT ABOUT 50ML AT A TIME. WILL CONTINUE TO MONITOR
--- NOTE | 2020-06-06 17:35 | NUR ---
PATIENT IS ALERT AND ORIENTED X2. BEDALARM IS ON, PATIENT WILL GET OUT OF BED TO WALK TO THE BATHROOM. C/O PAIN, TREATED PER EMAR. VITALS ARE WNL. WILL CONTINEU TO MONITOR.
--- NOTE | 2020-06-07 03:36 | NUR ---
SHIFT SUMMARY PATIENT HAD NO ACUTE CHANGES OBSERVED. AXOX 2 WITH CONFUSION AND NOT ABLE TO FOLLOW DIRECTIONS AT THIS TIME OR USE CALL LIGHT. REPORTED BACK, NECK, SHOULDER PAIN AND ULTRAM 50 MG GIVEN PER EMAR. ONE ASSIST TO BR. NO IV ACCESS. VSS/AFEBRILE. DENIES SOB AND N/V. MULTIPLE BED ALARM EXIT ATTEMPTS T/O SHIFT. WANDERS INTO OTHER PATIENT ROOMS AND INAPPROPRIATE TOUCHING AND VERBAL COMMENTS TO STAFF. CALL LIGHT IN REACH. BED IN LOWEST POSITION. WILL CONTINUE TO MONITOR UNTIL DAY SHIFT NURSE ASSUMES CARE.
--- NOTE | 2020-06-07 05:43 | NUR ---
URINARY RETENTION. BLADDER SCAN 756mL AND STRAIGHT CATH OUT 600mL.
--- NOTE | 2020-06-07 18:20 | NUR ---
PATIENT IS ALERT. HE IS CONFUSED. PATIENT HAS SLEPT IN BED MOST OF THE DAY. HE WILL GET OUT OF BED AND WALK IN THE HALLS WITH A SBA. PATIENT REFUSED A SHOWER AND BEDBATH TODAY. HE HAD A POOR APPETITE. C/O PAIN IN HIS BACK, TREATED PER EMAR AND REPOSITIONED WITH PILLOWS TO SUPPORT HIS BACK. STRAIGHT CATHED ONCE THIS SHIFT. WILL CONTINUE TO MONITOR
--- NOTE | 2020-06-08 04:32 | NUR ---
SHIFT SUMMARY PATIENT HAD NO ACUTE CHANGES OBSERVED. AXOX 2 AND SBA TO BR. USES URINAL AT BEDSIDE. REPORTED NECK,BACK, AND SHOULDER PAIN WITH ULTRAM 50 MG GIVEN PER EMAR ALTERNATING WITH TYLENOL. DENIES SOB AND N/V. VSS/AFEBRILE. INAPPROPRIATE TOUCHING TO STAFF AND INAPPROPRIATE LANGUAGE AT TIMES. NOT ABLE TO REDIRECT OR REORIENT. PATIENT SLEPT MORE FIRST HALF OF SHIFT. CALL LIGHT IN REACH. BED IN LOWEST POSITION AND ALARM ACTIVATED. WILL CONTINUE TO MONITOR UNTIL DAY SHIFT NURSE ASSUMES CARE.
--- NOTE | 2020-06-08 18:46 | NUR ---
SHIFT SUMMARY ANTONETTE COMPLAINED OF NECK/BACK PAIN. RECEIVED PO TYLENOL AND TRAMADOL AND HEAT PACK AND TRIED DISTRACTION. HE WAS VERY UNHAPPY WITH THIS, CONTINUALLY ASKING FOR MORE PAIN MEDICATION. INDEP IN ROOM AND HALLWAYS, ATTEMPTED TO LEAVE UNIT ONCE. BLADDER SCAN IN MORNING SHOWED 629ML. PT URINATED 50ML ON HIS OWN, STRAIGHT CATH DONE IN AFTERNOON FOR 500 OUTPUT. BLADDER SCAN AT 615PM SHOWED 149ML. POOR PO APPETITE, STATES HE CAN'T EAT HE IS IN TOO MUCH PAIN. ORIENTED TO SELF AND SOMEWHAT TO SITUATION. WCTM
--- NOTE | 2020-06-09 06:46 | NUR ---
SHIFT SUMMARY: VSS. AFEB. AAOX3. FORGETFUL. PERSEVERATES ON PAIN MEDS FOR NECK AND R SHOULDER. SCHED AND PRN TYL AND ULTRAM ADMINISTERED PER ORDERS. HOT PACK IN PLACE. PT FORGETS IMMEDIATELY AND ASKS FOR PAIN MEDS AGAIN. WILL WALK AROUND IN HALLWAY FOR SHORT AMT OF TIME- STAYING OUT OF OTHER PT'S ROOMS. CONT W/INAPPROPRIATE TOUCH- ATTEMPTS TO KISS STAFF- DIFFICULT TO REDIRECT, PT INSISTS HE IS "BLESSING STAFF" AND CAN ONLY DO SO BY KISSING THEM ON THE HANDS OR FACE. INCONT/CONT. VOIDS JUST SMALL AMTS. STRAIGHT CATHED THIS AM PER ORDERS. PT EVAN WELL. CURRENTLY SLEEPING. NO ACUTE CHANGES TONIGHT.
--- NOTE | 2020-06-09 19:20 | NUR ---
SHIFT SUMMARY ANTONETTE SLEPT MOST OF THIS SHIFT. GOT UP AT NOON AND URINATED A SMALL AMOUNT. BLADDER SCAN SHOWED AROUND 500ML MOST OF SHIFT, HE URINATES VERY SMALL AMOUNTS. NEVER GOT ABOVE 600ML, SO DIDN'T STRAIGHT CATH PER ORDER. RECEIVED TYLENOL AND TRAMADOL FOR BACK/NECK PAIN. BED ALARM ON FOR MOST OF SHIFT, HE WAS GROGGY AND DIZZY. THIS EVENING HE HAS BEEN VERY STEADY ON HIS FEET, CONTINUALLY ASKING FOR PAIN MEDICATION. VSS, TOOK MEDS PRESCRIBED
--- NOTE | 2020-06-10 04:49 | NUR ---
SHIFT SUMMARY: VSS. AFEB. AAOX3. CONT TO BE FORGETFUL AND PERSEVERATES ON PAIN MEDS. DOES NOT REMEMBER TAKING ANALGESIC IMMEDIATELY AFTER SWALLOWING IT. PAIN CONT IN NECK, R SHOULDER, AND BACK AT BASELINE. PT REPORTS VOIDING FREQUENTLY, INDEPENDENTLY IN THE BATHROOM. INITIAL PVR OF 462. WILL RECHECK THIS AM. UP WALKING AROUND IN HALLWAYS, OCC ENTERS DOORWAYS OF PT ROOMS, ENCOURAGED PT TO RETURN TO HIS OWN ROOM TO WHICH PT COMPLIES. INAPPROPRIATE KISSING TO ALL STAFF- KISSES HANDS AND ATTEMPTS TO KISS CHEEKS. PT BECOMES APPARENTLY OFFENDED WHEN TOLD NOT TO KISS STAFF- INSISTS HE NEEDS TO OFFER THESE KISSES BLESSINGS TO STAFF. NO ACUTE CHANGES AT THIS TIME. WILL CONT TO MONITOR.
--- NOTE | 2020-06-10 17:36 | NUR ---
SHIFT SUMMARY PATIENT ALERT AND ORIENTED X3 THIS SHIFT. PATIENT FREQUENTLY UP AND WALKS INTO THE HALLWAY. PATIENT REDIRECTED TO ROOM OR CHAIRS WITHOUT WHEELS FOR SAFETY. PATIENT MEDICATED THROUGHOUT THIS SHIFT FOR PAIN IN BACK. PATIENT CONTINUOUSLY REPORTS PAIN OF A 16 ON 1-10 SCALE. PATIENT SLEPT MUCH OF THE MORNING AND INTO THE AFTERNOON. PATIENT HAD A VISITOR IN THE ROOM EARLY THIS AFTERNOON. PATIENT CURRENTLY SITTING UP IN BED, TELEVISION ON.
--- NOTE | 2020-06-11 05:42 | NUR ---
SHIFT SUMMARY: VSS. AFEB. AAOX3. FORGETFUL. LESS FREQUENT C/O PAIN TONIGHT. HAS SLEPT WELL. CONT W/FREQUENT SMALL VOIDS WHILE AWAKE AND INCONTINENCE WHILE ASLEEP. PVR SHOWS 585 CC'S. CONT TO WALK IN HALLS AND OCC. ENTERS DOORWAY OF PT ROOMS WHERE STAFF ARE. DOES NOT REDIRECT WELL. ATTEMPTS TO KISS STAFF ON HANDS, CHEEKS, AND HEADS. WILL TRY TO RUB STAFF NECKS OR HUG SHOULDERS. TELLS STAFF HE LOVES US AND INSISTS HIS KISSES ARE BLESSINGS. DIFFICULT TO REDIRECT. ENCOURAGED PT TO WEAR A MASK WHEN OUT OF HIS ROOM- HE HAS NOT DONE SO. WILL CONT TO MONITOR.
--- NOTE | 2020-06-11 11:08 | NUR ---
ORLANDO KENNEDY, COURT VISITOR HERE TO SPEAK WITH PT REGARDING [place]DI[place]SHIP.
--- NOTE | 2020-06-11 15:16 | NUR ---
COURT PERSON IN TO SERVE PT WITH MORE [place]DI[place]SHIP PAPERS.
--- NOTE | 2020-06-11 17:33 | NUR ---
SHIFT SUMMARY- PT A/O X3 BUT FORGETUL. PT CONTINUOUSLY WOULD REPORT 14-18/10 PAIN TO BACK, NECK, SHOULDER AND RIGHT ARM. TYLENOL AND TRAMADOL GIVEN WELL JALEESA WOODS AND KPAD. LS CLEAR, ON RA. HRR. PT USES URINAL TO VOID INDEP WELL INCONT. BLADDER SCAN AT 1530 OF 473 NO STRAIGHT CATH, STRAIGHT CATH ORDER FOR BLADDER SCAN GREATER THAN 600ML. PT INDEP UP IN ROOM AND WANDERS IN THE BLUE, PT NEEDS TO BE REMINDED NOT TO GO INTO PT ROOMS. PT AWAITING PLACEMENT AND GAURDIANSHIP, COURT VISITOR IN TODAY FOR GUARDIANSHIP. NO OTHER ACUTE CHANGES THIS SHIFT.
--- NOTE | 2020-06-12 04:06 | NUR ---
[employer] CONSULTANT SUMMARY ALERT AND ORIENTED TO SELF ONLY. REPORTS PAIN RANGING FROM 10-15, MEDICATED PER EMAR, KPAD IN PLACE. WANDERS HALLWAY AT TIMES BUT IS EASILY REDIRECTABLE. PT DID NOT GET MUCH SLEEP THIS EVENING AND DIDNT FALL ASLEEP UNTIL AROUND 0230. NO ACUTE CHANGES OTHERWISE. VSS. BED IN LOWEST POSIION WITH CALL LIGHT IN REACH. WILL CONTINUE TO MONITOR AND REPORT TO ONCOMING RN.
--- NOTE | 2020-06-12 09:07 | NUR ---
NURSE WAS TOLD IN REPORT PT HAD BEEN UP MOST OF THE NIGHT. PT CONTINUES TO SLEEP AT THIS TIME AND WILL BE ALLOWED TO SLEEP. MEDS WILL BE HELD UNTIL PT IS AWAKE.
--- NOTE | 2020-06-12 17:29 | NUR ---
NO ACUTE CHANGES TO PT THIS SHIFT. HE REMAINS CONFUSED BUT REDIRECTABLE . PT IS FIXED ON SOME PAIN AND MEDICATED PER EMAR. THIS NURES RUBBED ICY HOT ON PTS NECK AND BACK. PT FORGETS HE HAS BEEN GIVEN PAIN RELIEF MEDICATION AND HAS TO BE REMINDED OFTEN. HE IS ABLE TO WALK AROUND. CALL LIGHT WITH IN REACH.
--- NOTE | 2020-06-12 19:53 | NUR ---
pt is a/o x3-4 with frequent forgetfulness. pt refused his scheduled 2100 stool softners. pt states he had soft bm's today at "6" this morning. he states " i don't need any of that, I go just fine". belly is soft, abd sounds present x4 quad, denies cramping or tenderness.
--- NOTE | 2020-06-13 06:09 | NUR ---
TRANSPORT CONDUCTOR SUMMARY PT A/O X3 WITH FREQUENT FORGETFULLNESS. COMPLAINS OF GENERALIZED PAIN INTERMITTENTLY. OFTEN FORGETS HE WAS ALREADY MEDICATED NOT LONG AGO UNTIL HE ASKS AGAIN. BLADDER SCANNED X2 TONIGHT WITH EACH SCAN LESS THAN 600ML. VSS. NO ACUTE CHANGES.
--- NOTE | 2020-06-13 17:44 | NUR ---
NO ACUTE CHANGES. PT SLEPT TILL THIS AFTERNOON . COMPLAINS OF PAIN TO SHOULDER AND NECK.MEDICATED PER EMAR. PT IS COMPLIANT WITH CARES AND FRIENDLY WITH STAFF.
--- NOTE | 2020-06-14 05:40 | NUR ---
SHIFT SUMMARY PT IS A 79 Y/O MALE, ADMITTED FOR DEHYDRATION AND HYPOCALCEMIA. HE IS A&O X SELF ONLY, VERY EMOTIONALLY LABILE, INDEPENDENT AND TENDS TO WANDER THE HALLWAY WHILE AWAKE. PT WAS VERY FOCUSED ON HIS PAIN MEDS DURING THE NIGHT, REQUESTING MEDS FREQUENTLY, INCLUDING AFTER HE HAD ALREADY RECEIVED MEDS. HE WAS MEDICATED WITH TYLENOL TWICE FOR A ORR, NECK AND BACK PAIN. NO COMPLAINTS OF NAUSEA OR SOB. VITAL SIGNS STABLE. NO ACUTE CHANGES IN PT CONDITION NOTED DURING THE NIGHT. PT SLEPT FOR A SHORT TIME THIS AM AFTER RECEIVING HIS SECOND DOSE OF TYLENOL. WILL CONTINUE TO MONITOR AND TREAT PER EMAR UNTIL HAND OFF TO DAY SHIFT RN.
--- NOTE | 2020-06-14 10:15 | NUR ---
PT'S GUARDIAN IN TO SEE HIM. PT GIVE HER KEYS TO HOME SO SHE CAN DO CHECK & GET HIM CLEAN CLOTHES.
--- NOTE | 2020-06-14 16:11 | NUR ---
SUMMARY PT SLEPT ALL MORNING, AROUSED FOR AM MEDS, HOWEVER DECLINE BF TRAY. @ LUNCH HE CONTINUE SLEEPING, DECLINED TRAY. THEN APPROX 13OO HE GOT UP, USED THE BR, ATTENDED TO ADLS, DRESSED HIMSELF IN STREET CLOTHES, BECAME FIXATED ON LEAVING HOSPITAL, PACKED HIS BELONGINGS. MULT ATTEMPTS TO REORIENT HIM TO WHY HE IS HERE & WHEN HE WILL D/C UNSUCCESSFUL, HE REQUIRED MULT REDIRECTION BACK TO HIS ROOM AFTER ATTEMPTING TO FORCE THRU LOCKED DOOR. GAVE PRN SEROQUEL 12.5 MG, PROVIDED REASSURANCES. HE WAS ABLE TO CALM, RESTING IN ROOM, HOWEVER CONTINUES DRESSED. GUARDIAN & CARE MANAGEMENT ATTEMPTING TO ARRANGE SAFE HOUSING. HE IS NON-VIOLENT, GENERALLY CALM, APPRECIATIVE. HX DEMENTIA, CONTINUING CONFUSION & FORGETFULLNESS. VSS.
--- NOTE | 2020-06-15 05:56 | NUR ---
SHIFT SUMMARY PT AWAKE ALL NIGHT UNTIL APPROX 0430. FREQUENTLY YELLS OUT "HONEY" TO THE STAFF. REQUESTING A "PAIN PILL" MUCH OF THE TIME. EVEN AFTER PT HAD JUST TAKEN ONE. SHORT TERM MEMORY POOR. PT PLEASANT AND COOPERATIVE. NO AGITATION THIS EVENING. PT WATCHED TV AND SNACKED THROUGHOUT MUCH OF THE NIGHT. BLADDER SCAN THIS EVENING 570 MLS. JUST BELOW AMOUNT FOR STRAIGHT CATH ORDER. PT REPORTED THAT AFTER SCAN HE HAD AN UNMEASURED VOID. PT FINALLY ASLEEP AFTER BEING AWAKE ALL NIGHT SO THIS RN DID NOT RECHECK BLADDER SCAN. WILL PASS ON TO DAY RN. PT CONTINUES TO AWAIT PLACEMENT. VITAL SIGNS STABLE. NO ACUTE CHANGES THIS SHIFT. WILL CONTINUE TO MONITOR.
--- NOTE | 2020-06-15 13:12 | NUR ---
PT DECLINE BF STATE "I DON'T FEEL GOOD", FATIGUED T/O MORNING, SLEEPING. AWAKE @ LUNCH HOWEVER STATE WILL EAT LATER. TYLENOL & ULTRAM GIVEN FOR CHR BACK PAIN. HE DEMONSTRATES MILD ANXIETY, MILDLY EMOTIONAL--PRN SEROQUEL 12.5MG GIVEN.
--- NOTE | 2020-06-15 15:20 | NUR ---
SUMMARY PT CONTINUES TO AWAIT SAFE PLACEMENT. HE IS A/O X1-2, FORGETFUL, @ X'S EMOTIONAL. VERY APPRECIATIVE OF CARE, WILL ATTEMPT TO KISS A PERSONS HAND, ASK GOD TO BLESS THEM. TODAY HE HAS STATED HE DOES NOT FEEL WELL, NOC RN REPORT HE DID NOT SLEEP WELL LAST NOC. HE HAS SLEPT MUCH OF DAY. WHEN AWAKE SOMEWHAT ANXIOUS. HE CONTINUES TO C/O CHR BACK PAIN, KPAD PROVIDED. LIDODERM PATCH PLACED, HAVE GIVEN TYLENOL & ULTRAM FOR RELIEF/CONTROL. POOR APPETITE TODAY, VERY LITTLE INTAKE. VSS.
--- NOTE | 2020-06-16 04:04 | NUR ---
SHIFT SUMMARY PATIENT HAD NO ACUTE CHANGES OBSERVED. AXOX 2 AND INDEPENDENT IN ROOM. TAKES MEDICATION WHOLE IN WATER. NO IV ACCESS. REPORTS BACK PAIN AND ULTRAM 50 MG GIVEN PER EMAR. VSS/AFEBRILE. SEROQUEL GIVEN LATER IN SHIFT PER EMAR TO HELP WITH SLEEP/WAKE PATTERN. PATIENT WILL INAPPROPRIATELY TRY TO TOUCH STAFF WITHOUT PERMISSION. PATIENT NOT ABLE TO REORIENT AND FOLLOW DIRECTIONS. CALL LIGHT IN REACH. BED IN LOWEST POSITION. WILL CONTINUE TO MONITOR UNTIL DAY SHIFT NURSE ASSUMES CARE.
--- NOTE | 2020-06-17 00:50 | NUR ---
THIS RN NOTED THAT PT WAS LYING ON HIS SIDE ON THE FLOOR NEXT TO HIS DOOR. CALLED FOR PT'S PRIMARY RN AND NECK BAND OPERATOR TO ASSIST PT. PT DENIES FALLING, REPORTING THAT HE LAID HIMSELF DOWN ON THE FLOOR. PT DENIES PAIN OR DISCOMFORT, NO SIGNS OF INJURY NOTED. PT ASSISTED BACK TO BED BY PRIMARY RN AND NECK BAND OPERATOR. BED IN LOWEST POSITION, ALARMS ON.
--- NOTE | 2020-06-17 04:21 | NUR ---
MEDIA ANALYTICS MANAGER SUMMARY PATIENT A&OX2, ABLE TO MAKE NEEDS KNOWN, PLEASANTLY CONFUSED, MULTIPLE EPISODES OF WANDERING DURING SHIFT. AT APPROX 0050 PATIENT WAS FOUND BY LEEROY FIGUEROA LAYING ON THE FLOOR SLEEPING. SHE IMMEDIATELY NOTIFIED THIS NURSE AND TUBE LASER OPERATOR. PATIENT DENIES FALLING AND STATED THE HE LAYED HIMSELFT ON THE FLOOR BECAUSE HE WAS TIRED. PT DENIES PAIN OR DISCOMFORT, NO INJURIED NOTED. PT REDIRECTED BACK TO BED, EDUCATED PATIENT ON USE OF CALL LIGHT FOR ASSISTANCE. AT APPROX 0145 PT WAS SEEN GETTING UP FROM BED AND VOIDING ON SINK. PT REDIRECTED TO BED. PATIENT INSTRUCTED ON PROPER USED OF CALL LIGHT, AND THE USE OF URINAL. PATIENT MEDICATED FOR CHRONIC PAIN PER EMAR. BED ALARM IN PLACE, NON SKID SOCKS IN PLACE, CALL LIGHT WITHIN REACH. WILL CONTINUE TO MONITOR PT, WILL REPORT TO ONCOMING RN.
--- NOTE | 2020-06-17 17:50 | NUR ---
SHIFT SUMMARY PATIENT DROWSY T/O SHIFT. ENCOURAGED TO GET OUT BED TO CHAIR AND DO PERSONAL CARE. THIS RN HELPED PT OUT OF BED TO CHAIR MULTIPLE TIMES. PATIENT FOUND TO RETURN HIMSELF TO BED AND ASLEEP. BLINDS LEFT OPEN DURING THE DAY TO HELP ORIENT PT. REFUSING MEALS. THIS RN ENCOURAGED PT TO FINISH ENSURE COMPLETE AT LUNCHTIME, AND EXPLAINED POTENTIAL COMPLICATIONS OF IMMOBILITY AND MALNUTRITION. VERBALIZED UNDERSTANDING.
--- NOTE | 2020-06-17 21:43 | NUR ---
PATIENT WANDERING ROOM AND HALLWAYS. NOT EASILY REDIRECTABLE. NOT FOLLOWING DIRECTIONS AT THIS TIME. PATIENT BACK IN BED.
--- NOTE | 2020-06-17 23:07 | NUR ---
PATIENT HAVING INCREASED AGITATION. OUT IN HALLWAY LOOKING IN MEDICAL CABINETS. NOT ABLE TO ORIENT AND FOLLOW DIRECTIONS. PATIENT REDIRECTED TO ROOM AND BACK INTO BED. ON CAMERA.
--- NOTE | 2020-06-18 01:55 | NUR ---
PATIENT STILL NOT SLEEPING. CAMERA MONITOR REPORTS: PULLING ON IV PUMPS, PULLED CALL LIGHT CORD OUT OF WALL AND PULLING AT CHAIR ALARM DEVICE ON WALL. PATIENT NON-COMPLIANT AND NOT FOLLOWING DIRECTIONS. SEROQUEL PRN GIVEN FOR AGITATION BUT NOT EFFECTIVE AT THIS TIME.
--- NOTE | 2020-06-18 04:12 | NUR ---
SHIFT SUMMARY PATIENT NOT ABLE TO SLEEP AT THIS POINT. BEDTIME DOSE OF SEROQUEL INEFFECTIVE. PATIENT UP T/O SHIFT AND WALKED IN BLUE OPENING MEDICAL CABINETS. DOES NOT FOLLOW DIRECTIONS AND MINMAL REORIENTS. INCREASED AGITATION NOTED T/O SHIFT PULLING IV PUMP CORDS AND PULLED CALL LIGHT CORD OFF WALL WELL CHAIR ALARM CORD OFF. PRN SEROQUEL INEFFECTIVE FOR AGITATION. AXOX 2 AND VOIDED IN SINK FOR SECOND NOC SHIFT IN A ROW. REPORTS BACK PAIN AND SCHEDULE TYLENOL AND PRN ULTRAM GIVEN PER EMAR. VSS/FEBRILE. DENIES SOB AND N/V. CALL LIGHT IN REACH. ON CAMERA. BED IN LOWEST POSITION. WILL CONTINUE TO MONITOR UNTIL DAY SHIFT NURSE ASSUMES CARE.
--- NOTE | 2020-06-18 16:29 | NUR ---
PT IS A/OX3, PLEASANT AND COOPERATIVE, THE PT IS UP WITH MINIMAL ASSIST, HOWEVER, THE PT WAS ONLY UP ON THE SIDE OF THE BED FOR MEDICATION TODAY, DECLINED BREAKFAST AND LUNCH, DECLINED TO GET UP TO THE CHAIR, DECLINED TO HAVE A SHOWER OR A BEDBATH, PT STATED THAT HE JUST WANTED TO SLEEP ALL DAY, PT WAS GIVEN TYLENOL FOR SHOULDER AND BACK PAIN THIS AM, AND THEN GIVEN TRAMADOL FOR PAIN AROUND LUNCH TIME, PT IS USEING THE URINAL AT THE BEDSIDE, CALL LIGHT IN REACH.
--- NOTE | 2020-06-19 07:21 | NUR ---
PT admitted over 1 month ago with dehydration Hypocalcemia continues focused primarily on pain in neck & back. Medicated multiple times for pain with mild helpful effect. PT continues impulsive high fall risk due to weakness unsteady gait fall this hospitalization. Set off bed alarm multile times. Oral intake encouraged ensure & puddings offer drank 1 [place]. ensure. Calls out asking for pain meds every fev minutes. DC planning continues.
--- NOTE | 2020-06-19 17:55 | NUR ---
PT IS A/OX3, PLEASANT AND COOPERATIVE, THE PT IS UP IND, THE PT TODAY WAS MOSTLY AWAKE, DECLINED HOWEVER, TO GET UP OUT OF THE BED WHEN ASKED, PT ATE SMALL AMOUNTS OF HIS MEALS, THE PT WAS MEDICATED FOR PAIN T/O THE DAY ALLOWED PER MD ORDERS, PT APPEARS TO BE BREATHING EASILY ON RA AT THIS TIME, CALL LIGHT IN REACH, WILL CONTINUE TO MONITOR FOR CHANGES
--- NOTE | 2020-06-20 06:03 | NUR ---
PT was much less focused on pain this shift but still focused on pain. Fall risk high PT sets off bed alarm multiple times. Gen weakness with some swaying when up out of bed. Continues to be affectionate & says God loves you & I do too. Cooperative with meds whole with water. Can be demanding at times likes to know what is happening on unit. Impulsive attempts to turn off bed alarm at times. Redirectable. Continues to need placement due to need for guardianship.
--- NOTE | 2020-06-20 17:42 | NUR ---
SHIFT SUMMARY: NO ACUTE EVENTS. PATIENT STAYED IN BED ALL DAY, REFUSED SHOWER AND LINEN CHANGE. STATED HE WAS "HURTING PRETTY BAD." GAVE PAIN MEDICATIONS PER EMAR. USING URINAL INDEPENDENTLY. REFUSED ALL ATTEMPTS AT MOBILITY.
--- NOTE | 2020-06-21 19:36 | NUR ---
SHIFT SUMMARY: NO EVENTS THIS SHIFT. ASKS FOR PAIN MEDS EVERY TIME STAFF GOES IN TO THE ROOM, REFUSED TO GET OOB TO CHAIR OR BATHE. MODERATE APPETITE. USING URINAL, HAD BM TODAY. SLEPT ALL SHIFT.
--- NOTE | 2020-06-22 04:32 | NUR ---
MINE EXPLORATION ENGINEER SUMMARY PT HAS BEEN UNABLE TO SLEEP ENTIRE SHIFT. C/O OF PAIN IN NECK AND BACK THAT IS CONSTANT WITH NO RELIEF FROM PAIN MEDS. KPAD IN PLACE. DENIED SHOWER THIS SHIFT. IS EASILY REDIRECTABLE BUT FORGETFUL. VSS. NO ACUTE CHANGES AT THIS TIME. BED IN LOWEST POSITION WITH CALL LIGHT IN REACH. WILL CONTINUE TO MONITOR AND REPORT TO ONCOMING RN.
--- NOTE | 2020-06-22 16:46 | NUR ---
PT PLEASANT COOP TODAY. HAS BEEN ASLEEP MOST OF DAY. AWOKE ABOUT 16:00 AND ASKED FOR PAIN MEDS. TYLENOL ADMIN. HE IS UP WALKING IN BLUE. HE COMES UP AND "I LOVE YOU " TO ALL STAFF IN AREA. NO NEW CONCERNS AT THIS TIME. BED IN LOW POSITION, CALL LITE IN REACH, BED ALARM ON FOR SAFEATY AND CAMERA SO CAN MONITOR SAFETY
--- NOTE | 2020-06-23 01:22 | NUR ---
PTSAT ON FLOOR BEHIND STAFFING MGR. VSS. STATED HE WAS TRYING TO SIT "IN THE CHAIR", BUT THERE WA NO CHAIR. VOICED PAIN IN HIS BUTTOCKS. NO NOTED DISCOLORATION OF BUTTOCKS OR BACK. NO NOTED INTERRUPTION IN SKIN INTEGRITY OF AREAS ASSESSED. DENIED DECREASED SENSATION X 4 EXT. LIVESTOCK FARMER QUAL AND STRONG. NO NOTED DECREASED ROM OF XT X 4. CHARGE NURSE NOTIFIE. PT ESCOTED TO BED. BED ALARM ON. CALL PLACED TO PLANT PHYSIOLOGY TEACHER MD.
--- NOTE | 2020-06-23 01:39 | NUR ---
NOTIFIED DR. SARABIA PER PERFECT BINDER OPERATOR PT. SAT ON THE FLOOR THINKING HE WAS GOING TO SIT IN A CHAIR. NO CHAIR PRESENT. INFORMED PHYSICIAN PT. STATED PAIN IN HIS BUTTOCKS, NO BRUISING NOTED. RCEIVED ORDER TO CONT TO MONITOR. PT. RESTING QUIETLY IN BED, NO APPARENT DISTRESS NOTED. CALL LIGHT WITHIN REACH, SIDE RAILS UP X2, AND BED ALARM ON FOR SAFETY. WILL CONT TO MONITOR.
--- NOTE | 2020-06-23 01:45 | NUR ---
Fall I was sitting at the desk outside of room 349 when pt from 349 came out walked around to the left side of me. His right hand was on the back of my chair and he had a cup in his left. He asked me for a Pepsi. I said ok. He then started to go back around me alissa side stepping to his room and when he got directly behind me with his hand still on my chair he turned to where his back was to the room and he proceeded to what appeared to be sitting down with no chair behind him. He landed in a sitting position on his bottom in the door way of his room.([id number]) I called for LEBRON (RN) and he came. He was asked what he was doing and he said he was sitting down. We got him up and I asked what was he trying to sit on and he said the chair. He the looked around and seen that there was no chair there. We got him back to his bed. in the chair.
--- NOTE | 2020-06-23 04:39 | NUR ---
SHIFT SUMMARY- PT. AWAKE ALL SHIFT. AMBULATING IN THE HALLWAY ON/OFF DURING THE NIGHT. CONSISTANTLY C/O PAIN TO BACK, NECK, AND HEAD. MEDICATED PER EMAR WITH NO RELIEF. PT. GIVEN LOTS OF SNACKS UPON REQUEST AND OFFERED SHOWER THIS SHIFT, BUT DECLINED. NO ACUTE CHANGES TO CONDITION. RESTING QUIETLY IN BED AT THIS TIME. DENIES NEEDS. CALL LIGHT WITHIN REACH, SIDE RAILS UPX2, AND BED ALARM ON FOR SAFETY. WILL CONT TO MONITOR.
--- NOTE | 2020-06-23 17:15 | NUR ---
SHIFT SUMMARY PATIENT MEDICATED X2 FOR PAIN THIS SHIFT. DENIES NAUSEA AND SHORTNES OF BREATH. PATIENT UP SBA IN ROOM. PATIENT SLEEPING MOST OF SHIFT HE WAS UP ALL NIGHT. PLEASANT AND COOPERATIVE WITH CARE.
--- NOTE | 2020-06-24 05:07 | NUR ---
SHIFT SUMMARY- NO ACUTE EVENTS OVERNIGHT. PT. C/O PAIN FREQUENTLY DURING THE NIGHT, MEDICATED PER EMAR. SLEPT ON/OFF, BUT MAJORITY OF THE SHIFT AWAKE. SNACKS PROVIDED T/O THE NIGHT PER PT. REQUEST. PT. AWAITING PLACEMENT. CALL LIGHT WITHIN REACH, SIDE RAILS UPX3, AND BED ALARM ON. WILL CONT TO MONITOR.
[2020-06-24 10:47] LABS: Hematocrit 35.3 % (37.0-53.0); Hemoglobin 10.8 g/dL (13.5-17.5); Mean Corpuscular HGB 25.7 pg (26.0-34.0); Mean Corpuscular HGB Conc 30.6 g/dL (31.5-36.5); Mean Corpuscular Volume 84 fL (80-100); Mean Platelet Volume 10.2 fL (9.1-12.4); Platelet Count 259 K/mm3 (150-400); RDW Coefficient Variation 23.3 % (11.7-14.2); RDW Standard Deviation 70.7 fL (35.1-46.3); White Blood Cell Count 6.37 K/mm3 (4.00-11.30)
[2020-06-24 10:57] LABS: Anion Gap 4 mmol/L (6-16); Blood Urea Nitrogen 13 mg/dL (8-24); Bun/Creatinine Ratio 14.4 (12.0-20.0); CO2, Blood 31 mmol/L (21-32); Calcium, Blood 9.3 mg/dL (8.5-10.1); Chloride, Blood 107 mmol/L (98-108); Glomerular Filtration Rate >60 (60-); Glucose, Blood 134 mg/dL (70-99); Potassium, Blood 3.3 mmol/L (3.5-5.5); Sodium, Blood 142 mmol/L (136-145)
--- NOTE | 2020-06-24 17:40 | NUR ---
SHIFT SUMMARY PATIENT MEDICATED X2 FOR PAIN THIS SHIFT. DENIES NAUSEA AND SHORTNESS OF BREATH. UP SBA IN ROOM. REFUSED SHOWER, COMPLETE BEDBATH GIVEN. NAPPING IN AFTERNOON. EATING AND DRINKING WELL.
--- NOTE | 2020-06-25 04:42 | NUR ---
SHIFT SUMMARY- NO ACUTE CHANGES OVERNIGHT. PAIN MED GIVEN PER EMAR FOR CHRONIC PAIN, WITH MINIMAL EFFECT. PT. UP AMBULATING IN ROOM AND HALLWAY. UNSTEADY GAIT, NURSING STAFF ASSISTED PT. BACK TO BED. SLEPT THE REST OF THE NIGHT. NO APPARENT DISTRESS NOTED. VSS. CALL LIGHT WITHIN REACH, SIDE RAILS UPX3, AND BED ALARM ON FOR SAFETY. WILL CONT TO MONITOR.
[2020-06-25 06:51] LABS: Magnesium, Blood 2.2 mg/dL (1.6-2.4); Potassium, Blood 3.4 mmol/L (3.5-5.5)
--- NOTE | 2020-06-25 19:12 | NUR ---
SHIFT SUMMARY: NO ACUTE CHANGES TO REPORT THIS SHIFT. PT HX DEMENTIA c CONFUSION; ORIENTED TO SELF. MEDICATED FOR CHRONIC BACK/NECK/SHOULDER PAIN PER EMAR. HX CKDS2; NEPHROLOGY (DR KRUGER) FOLLOWING. AWAITING PLACEMENT. REPORT GIVEN TO ONCOMING RN.
--- NOTE | 2020-06-25 19:25 | NUR ---
ASSUMED CARE. ANTONETTE WAS LAYING IN BED ASKING FOR PAIN MEDICATION. PAIN MEDICATION WAS JUST GIVEN. OFFERED HEAT FOR PAIN IN BETWEEN MEDS. REPORTS PAIN IS IN UPPER NECK TO BACK AREAA. GRIMACES WHEN HE SAT UP. LIDOCAIN PATCH IN PLACE. DENIES ANY OTHER NEEDS AT THIS TIME. INDEPENDENT IN THE ROOM. CALL LIGHT IN REACH. WILL PROVIDE CARE.
--- NOTE | 2020-06-26 05:17 | NUR ---
SHIFT SUMMARY: ANTONETTE WAS A BUSY LITTLE BEE TONIGHT HE WAS UP AND DOWN WITH NO SLEEP. AOX2, REPORTS PAIN CONSTANTLY DISPITE PAIN MEDICATION BEING GIVEN. HAD TO WRITE THE TIMES ON THE BOARD TO HELP HIM REMEMBER WHEN THEY WERE DUE. GOOD APPETITE HE MUNCHED ON SNACKS ALL NIGHT. DUE TO PRN TYLENOL BEING GIVEN WAS NOT ABLE TO GIVE SCHEDULED DOSE IT WAS TO SOON, SO DOSE WAS HELD. REPORTS GETTING UP TO BATHROOM OFF AND ON THIS SHIFT. VS WNL, AFEBRILE. DENIES ANY OTHER COMPLAINTS OTHER THEN PAIN. CALL LIGHT REMAINED IN REACH.
--- NOTE | 2020-06-26 19:07 | NUR ---
SHIFT SUMMARY: NO ACUTE CHANGES TO REPORT THIS SHIFT. PT HX DEMENTIA; OCC CONFUSION; FORGETFUL. MEDICATED FOR CHRONIC PAIN PER EMAR. AWAITING PLACEMENT. REPORT GIVEN TO ONCOMING RN.
--- NOTE | 2020-06-26 19:30 | NUR ---
ASSUMED CARE. ANTONETTE REPORTS PAIN ALWAYS AT 16 BUT HAD HIM CHOICE BETWEEN 1-10 AND IT WAS A 10. CONSTANTLY LOOKING AT THE CLOCK AND THE WHITE BOARD COUNTING DOWN THE HOURS TO WHEN HE CAN HAVE HIS PAIN MEDS. FORGETS HE JUST HAD THEM A FEW HOURS AGO. DOES NOT COMPERHEND WHY THE MEDICATION HAS TO BE SPREAD OUR BETWEEN HOURS. DENIES ANY OTHER NEEDS OR CONCERNS. DID NOT SLEEP WELL LAST NIGHT OR TODAY. WILL TRY AND GIVE SEREQUEL TO SEE IF HE MAY GET SOME GOOD NIGHT REST BEFORE HIS MEETING IN THE MORNING. INDEPENDENT IN THE ROOM. CALL LIGHT IN REACH.
--- NOTE | 2020-06-27 05:22 | NUR ---
SHIFT SUMMARY: ANTONETTE HAD A BETTER NIGHT HE FELL ASLEEP FOR SEVERAL HOURS. REPORTS CONSTANT PAIN IN NECK AND BACK, FORGETFUL STILL ON WHEN MEDICATION WAS GIVEN. DID BETTER AT FOLLOWING THE BOARD AND TIMES FOR PAIN MANAGEMENT. INDEPENDENT AND ABLE TO WALK THE HALLS. GOOD APPETITE STILL SNACKING ALOT. WOKE UP THIS AM WANTING PAIN MEDS, WILL MEDICATE. AWARE THAT HE HAS A MEETING THIS AM AT 9 FOR PLACEMENT. NO OTHER ACUTE CHANGES TO REPORT AT THIS TIME. CALL LIGHT IS IN REACH.
--- NOTE | 2020-06-27 17:18 | NUR ---
SUMMARY- PT INDEPENDANT; AMBULATES IN ROOM STEADY AND INTO BLUE. FRIENDLY WITH STAFF, WILLIAM STATES HE LOVES US AND KISSES MY HAND. PT UP IN CHAIR FOR BREAKFAST. TOLERATING FOOD AND FLUIDS. C/O SEVERE NECK PAIN "15/10" WHEN ASKED. MEDICATED WITH TYLENOL IN THE AM WITH STATED RELEIF. 0900 [facility] STAFF HERE TO ASSESS PT FOR THEIR FACILITY- INVITED PT TO COME TO STAY THERE AND STATED THAT THEY'D TRY TO SET EVERYTHING UP FOR DC ON THURSDAY. PT NAPPED ALL AFTERNOON UNTIL 1645, AWOKEN FOR VS AND THAN STATES HIS PAIN 15/10. MEDICATED WITH ULTRAM. PT TOLERATING FLUIDS. VOIDING IN URINAL. WILL REPORT TO NOC RN
--- NOTE | 2020-06-28 04:54 | NUR ---
MANAGER CREDIT RISK SUMMARY patient was awake all night, When asked about his pain, he would consistantly say "it is a 16". He would equate it to a 10 using our pain scale. Repeat evaluations 30 minutes after his ultram or tylenol, patient would continue to state it was a 16 (or a ten) and not recall receiving any pain medicine. Ben spent a lot of time walking the halls and attempting to go into patient rooms. Ambulating independently in the halls
--- NOTE | 2020-06-28 17:29 | NUR ---
SHIFT SUMMARY PT A/O X1; PLEASANTLY CONFUSED AND AFFECTIONATE TOWARDS STAFF. THE PATIENT HAS BEEN RESTING QUIETLY IN BED FOR THE MAJORITY OF THE SHIFT. WHEN THE PT WAKES UP HE C/O CHRONIC PAIN IN HIS BACK, SHOULDER, ARM, NECK, AND HEAD. HE HAS BEEN MEDICATED ONCE WITH TYLENOL AND ONCE WITH ULTRAM THIS SHIFT. HE IS IND IN THE ROOM AND AT TIMES WANDERS IN THE BLUE. PT AWAITING PLACEMENT IN [facility]. VSS; LORIN.
--- NOTE | 2020-06-29 02:27 | NUR ---
VP CONSTRUCTION SUMMARY Patient had a fairly routine night. He was OOB wandering the halls about 50% of the night looking for his friend Keo. He had to be told twice that he was not allowed to wander in and out of other patients rooms. Constant complaints of chronic neck and shoulder pain untouched per the patient with tylenol and Tramadol. He stays awake waiting until he can have another dose of one or the other. We discussed the fact that exhaustion was only increasing his discomfort. Ben agreed, and He really did try to lay down, however, he was unsucessful in being able to relax or to make something other than his discomfort his focus
--- NOTE | 2020-06-29 16:45 | NUR ---
SHIFT SUMMARY PT A/O X1 AND VERY FORGETFUL. PT C/O BACK, NECK, SHOULDER, AND ARM PAIN OFTEN BUT FORGETS WHEN HE IS GIVEN MEDICATION SO ASKS FOR PAIN MEDICATION OFTEN. PT HAS SLEPT FOR THE MAJORITY OF THE DAY BECAUSE HE DID NOT SLEEP LAST NIGHT. HAS REFUSED TO WAKE UP AND TAKE A SHOWER. VSS, LORIN.
--- NOTE | 2020-06-30 06:19 | NUR ---
SHIFT SUMMARY PATIENT ALERT AND ORIENTED X3. HE CONTINUES TO BE VERY FORGETFUL AND WILL OFTEN ASK FOR PAIN MEDICATION WITHIN FIVE MINUTES OF RECEIVING IT DUE TO FORGETTING THAT HE HAD TAKEN IT. PATIENT MEDICATED FOR PAIN PER EMAR. BED IN LOWEST POSITION WITH WHEELS LOCKED. CALL LIGHT WITHIN REACH. REPORT GIVEN TO ONCOMING RN.
--- NOTE | 2020-06-30 17:38 | NUR ---
NO CHANGES. PT CONTINUES TO BE AOX3 WITH CONFUSION AND IS VERY NEEDY EMOTIONALLY. PT TREATED FOR PAIN PER EMAR. NO DISTRESS NOTED. PT WALKS AROUND INDEPENDENTLY AND SOMETIMES NEEDS REDIRECTED TO HIS BED. WILL CONTINUE TO MONITOR.
--- NOTE | 2020-07-01 06:13 | NUR ---
PATIENT CONTINUES TO BE ALERT AND FORGETFUL, ALTHOUGH HE IS ABLE TO ANSWER ORIENTATION QUESTIONS APPROPRIATELY. HE WAS ABLE TO SLEEP FAIRLY WELL OVERNIGHT WITH MINIMAL NEEDS. BED IN LOWEST POSITION WITH WHEELS LOCKED. CALL LIGHT WITHIN REACH. REPORT GIVEN TO ONCOMING RN.
--- NOTE | 2020-07-01 17:21 | NUR ---
NO CHANGES PT COMES OUT OF ROOM OFF AND ON. PT NEEDS REDIRECTED TO ROOM AND WILL HAVE TO BE REMINDED TO KEEP HIS OWN PERSONAL SPACE. PT HAS TAKEN A LONG NAP TODAY AND HAS BEEN EATING WELL. PAIN HAS BEEN TREATED PER EMAR. WILL CONTINUE TO MONITOR.
--- NOTE | 2020-07-02 06:02 | NUR ---
SHIFT SUMMARY PATIENT ALERT AND ABLE TO APPROPRIATELY ANSWER ORIENTATION QUESTIONS. PATIENT MEDICATED PER EMAR FOR PAIN. HE WAS ABLE TO SLEEP WELL MOST OF THE NIGHT. BED IN LOWEST POSITION WITH WHEELS LOCKED. CALL LIGHT WITHIN REACH. REPORT GIVEN TO ONCOMING RN.
--- NOTE | 2020-07-02 16:48 | NUR ---
PT AO AND CAN GET A BIT ANXIOUS AND NEEDY AT TIMES. PT SEEMS TO BE ABLE TO BE REDIRECTED. PT HAS DONE BETTER TODAY KEEPING HIS OWN PERSONAL SPACE. PT TREATED FOR HIS CHRONIC PAIN PER EMAR. PT IS SLEEPING IN HIS BED AT THIS TIME WILL CONTINUE TO MONITOR.
--- NOTE | 2020-07-03 04:41 | NUR ---
SUMMARY: A/O BUT CONTINUES TO BE FORGETFULL AND OFTEN LACKS AWARENESS OF TIME. PT REQUESTS PAIN MEDS OFTEN BUT THEN IMMEDIATELY REPORTED RELIEF AFTER SCHEDULE PO TYLENOL WAS RECIEVED. HE'S DENIED NEEDS ASIDE FROM AN OCCASIONAL SNACK. SBA PROVIDED PRN BUT PT IS MOSTLY INDEPENDENT AND WANDERS INTO HALLS AD MIKY. HE CAN BE AFFECTIONATE AT TIMES AND FREQUENTLY WANTS TO GIVE STAFF "A BLESSING" BY KISSING THEIR HANDS. HE USED URINAL INDEPENDENTLY AND ATTENDS CHANGED PRN FOR DRIBBLE INCONTINENCE. NO ACUTE CHANGES, VSS/AFEBRILE. PLAN IS FOR PT TO D/C TO [facility] TODAY, WILL ALERT DAY RN OF POSSIBLE NEED FOR COVID TEST PRIOR. LORIN AND REPORT TO DAY RN.
[2020-07-03] MEDS ORDERED: ACET325 PO (16:38)
[2020-07-03] MEDS ORDERED: Amlodipine Bes2.5 MG PO (16:40)
[2020-07-03] MEDS ORDERED: ASCO500 PO (16:40)
[2020-07-03] MEDS ORDERED: Colace100 MG PO (16:41)
[2020-07-03] MEDS ORDERED: FINA5 PO (16:42)
[2020-07-03] MEDS ORDERED: FERSU300 PO (16:42)
[2020-07-03] MEDS ORDERED: LORA2 PO (16:42)
[2020-07-03] MEDS ORDERED: LIDOCAINE1 EAC1 TOP (16:42)
[2020-07-03] MEDS ORDERED: QUET25 PO (16:44)
[2020-07-03] MEDS ORDERED: Nicoderm Cq1 EAC1 TOP (16:44)
[2020-07-03] MEDS ORDERED: BEN GAY TOP (16:44)
[2020-07-03] MEDS ORDERED: SENN187 PO (16:45)
[2020-07-03] MEDS ORDERED: TRAM50 PO (16:45)
[2020-07-03] MEDS ORDERED: QUET100 PO (16:45)
[2020-07-03] MEDS ORDERED: TAMS.4ER PO (16:45)
--- NOTE | 2020-07-03 17:09 | NUR ---
Shift Summary A/OX3, pleasant and cooperative with care. Up in room and to the bathroom independently. Patient has been resting in bed most of the day. Medicated for pain x 3 with minimal relief. Appetitie is diminished. VSS, afebrile. Plan for discharge tomorrow to [facility] @ 0900. Will continue to monitor.
--- NOTE | 2020-07-03 17:46 | NUR ---
STRAIGHT CATH Patient had post void residual of > 445 cc per bladder scanner. Received telephone order to straight cath once now and prn for post void residual of 450 cc or greater [address] Roche. Order updated.
--- NOTE | 2020-07-03 18:49 | NUR ---
REFUSED STRAIGHT CATH Patient refused straight cath requesting to wait until scheduled dose of Tylenol @ 2100. Will pass this on to receiving RN.
--- NOTE | 2020-07-03 21:47 | NUR ---
PER DAY SHIFT REPORT, A STRAIGHT CATH NOW AND PRN ORDER WAS RECIEVED FOR A BLADDER SCAN >450 MLS. PT HAD REFUSED AT THE TIME AND SAID HE WAS AGREEABLE AFTER SCHEDULED PAIN MEDS WERE RECIEVED AT 2100. PT CONTINUED TO REFUSE AFTER TYLENOL WAS RECIEVED TONIGHT. PT VOIDS APPROX 100-300 MLS AT A TIME THOUGH AND IS URINATING FAIRLY REGULARLY. BLADDER SCAN AT 2144 WAS 322 MLS AND HE DENIED FEELING URGENCY, UNCOMFORTABLE OR NEEDING TO VOID. SOHAIL (COST ACCOUNTING CLERK) MADE AWARE AND SHE INSTRUCTED THAT ST.CATH WASN'T NECESSARY UNLESS PT WAS SYPMPTOMATIC OF RETENTION W/PVR'S>450 MLS. WILL CONTINUE TO MONITOR BUT NO STRAIGHT REQUIRED AT THIS TIME.
--- NOTE | 2020-07-04 05:13 | NUR ---
SUMMARY: PT A/O BUT OFTEN FORGETFULL AND REQUESTS PAIN MEDS OFTEN. ONCE RECIEVED HE REPORTS IMMEDIATE RELIEF. HE'S INDEPENDENT IN HIS ROOM, WALKS IN HALLS AND SBA PRN FOR OCCASIONAL UNSTEADY GAIT W/HX FALLS. PT USED URINAL AND WAS UP TO TOILET AD MIKY. ST.CATH WASN'T REQUIRED THIS SHIFT D/T PT ASYMPTOMATIC OF RETENTION AND PVR<450MLS. HE SLEPT MAJORITY OF NOCTE AFTER RECIEVING HS MEDS. NO ACUTE CHANGES, VSS/AFEBRILE. PLAN FOR D/C TO [facility] TODAY. WCTM AND REPORT TO DAY RN.
--- NOTE | 2020-07-04 09:20 | NUR ---
Discharge Summary A/Ox3, [facility]. Report given to receiving RN Carole Eldridge @ [phone] and informed patient is on his way. Medicated x 1 per scheduled pain med with minimal relief to shoulders, neck, arms. Discharge paperwork printed and sent with patient. Personal belongings also sent with patient to facility. Confirmed discharge orders and Rx's have been faxed over by . Referral not made due to none available. Per CM Penelope, PCP has been established by jennifer and appointment has already been made. Also, Penelope to communicate with guardian and Michelle Barba about selecting Psychiatrist in order to establish psychiatrist and f/u with care (possibly getting referral from PCP). Patient picked up by robin via w/c.
== END 2020-07-04 09:06 | disposition home or self-care (01) ==
LOC: ER 20:33 → MEDS 20:34 → DELPENDDIS 05-23 12:07 → ENPENDDIS 05-23 12:07 → MEDS 07-04 09:06
PROVIDERS: Family Medicine; Internal Medicine; Internal Medicine Nephrology; Physician Assistant; ADMIT Internal Medicine
DX: N17.0 Acute kidney failure with tubular necrosis (principal); G30.9 Alzheimer's disease, unspecified; F02.81 Dementia in other diseases classified elsewhere, unspecified severity, with behavioral disturbance; I12.9 Hypertensive chronic kidney disease with stage 1 through stage 4 chronic kidney disease, or unspecified chronic kidney disease; N18.30 Chronic kidney disease, stage 3 unspecified; D63.1 Anemia in chronic kidney disease; E86.0 Dehydration; E87.0 Hyperosmolality and hypernatremia; E87.6 Hypokalemia; E83.39 Other disorders of phosphorus metabolism; G47.00 Insomnia, unspecified; E78.5 Hyperlipidemia, unspecified; I44.30 Unspecified atrioventricular block; M19.90 Unspecified osteoarthritis, unspecified site; I67.1 Cerebral aneurysm, nonruptured; R89.2 Abnormal level of other drugs, medicaments and biological substances in specimens from other organs, systems and tissues; N28.89 Other specified disorders of kidney and ureter; J96.01 Acute respiratory failure with hypoxia; R40.0 Somnolence; T43.4X5A Adverse effect of butyrophenone and thiothixene neuroleptics, initial encounter; N40.1 Benign prostatic hyperplasia with lower urinary tract symptoms; R33.8 Other retention of urine; N39.0 Urinary tract infection, site not specified; B96.1 Klebsiella pneumoniae [K. pneumoniae] as the cause of diseases classified elsewhere; F17.210 Nicotine dependence, cigarettes, uncomplicated; G89.29 Other chronic pain; M54.5 Low back pain; D50.9 Iron deficiency anemia, unspecified; Z88.5 Allergy status to narcotic agent; Z79.899 Other long term (current) drug therapy; Z85.46 Personal history of malignant neoplasm of prostate; Z20.828 Contact with and (suspected) exposure to other viral communicable diseases; Z51.5 Encounter for palliative care
CPT/HCPCS: 32405; 36415; 71045; 74176; 76770; 80048; 80053; 80069; 81001; 82248; 82550; 82728; 83540; 83550; 83735; 84100; 84132; 84145; 84153; 84550; 85014; 85018; 85025; 85027; 87077; 87086; 87186; 93005; 93010; 93306; 96372; 96374; 96375; 96376; 99285-25; A9270; A9270-GY; G0378; G0480; J0881; J1630; J1650; J2916; J3010; J3480; J7030; J7050; J7060; U0004

== ENCOUNTER 2020-07-16 16:21 | Emergency (ER) | payer SELFPAY ==
[~2020-07-16] VITALS: Ht 182.9 cm; Wt 90.7 kg
[~2020-07-16 16:21] MED LIST changes: +ACET325 PO; +ASCO500 PO; +Amlodipine Bes2.5 MG PO; +BEN GAY TOP; +Colace100 MG PO; +FERSU300 PO; +FINA5 PO; +LIDOCAINE1 EAC1 TOP; +LORA2 PO; +Nicoderm Cq1 EAC1 TOP; +QUET100 PO; +QUET25 PO; +SENN187 PO
[2020-07-16 17:35] LABS: Calcium, Ionized (POC) 1.21 mmol/L (1.10-1.46); Chloride (POC) 103 mmol/L (98-108); Creatinine (POC) 0.9 mg/dL (0.8-1.3); Glucose (ISTAT POC) 111 mg/dL (70-99); Hemoglobin (POC) 12.2 g/dL (13.5-17.5); Potassium (POC) 3.2 mmol/L (3.5-5.5); Sodium (POC) 142 mmol/L (135-148); Total CO2 (POC) 24 mmol/L (21-32)
== END 2020-07-16 18:46 | disposition home or self-care (01) ==
LOC: ER 16:21
PROVIDERS: Emergency Medicine
DX: F03.91 Unspecified dementia, unspecified severity, with behavioral disturbance (principal); R45.1 Restlessness and agitation; I10 Essential (primary) hypertension; D29.1 Benign neoplasm of prostate; Z88.5 Allergy status to narcotic agent; Z79.899 Other long term (current) drug therapy; F17.200 Nicotine dependence, unspecified, uncomplicated
CPT/HCPCS: 80047; 85014; 99285; A9270

== ENCOUNTER 2020-07-17 09:03 | Emergency (ER) | payer SELFPAY ==
[~2020-07-17] VITALS: Ht 182.9 cm; Wt 68.0 kg
== END 2020-07-17 12:15 | disposition home or self-care (01) ==
LOC: ER 09:03
DX: Z04.3 Encounter for examination and observation following other accident (principal); R55 Syncope and collapse; I10 Essential (primary) hypertension; N40.0 Benign prostatic hyperplasia without lower urinary tract symptoms; Z88.5 Allergy status to narcotic agent; Z79.899 Other long term (current) drug therapy
CPT/HCPCS: 70450; 93005; 93010; 99284-25

== ENCOUNTER 2020-08-28 17:55 | Emergency (ER) | payer MEDICARE, OTHER ==
[~2020-08-28] VITALS: Ht 182.9 cm; Wt 72.6 kg
[2020-08-28 20:37] LABS: BASOPHILS ABSOLUTE AUTO 0.04 K/mm3 (0.00-0.23); BASOPHILS PERCENT AUTO 1 % (0-2); EOSINOPHILS ABSOLUTE AUTO 0.08 K/mm3 (0.00-0.68); EOSINOPHILS PERCENT AUTO 1 % (0-6); Hematocrit 41.3 % (37.0-53.0); Hemoglobin 13.2 g/dL (13.5-17.5); IMMATURE GRAN ABSOLUTE AUTO 0.02 K/mm3 (0.00-0.10); IMMATURE GRAN PERCENT AUTO 0 % (0-1); LYMPHOCYTES ABSOLUTE AUTO 0.76 K/mm3 (0.84-5.20); LYMPHOCYTES PERCENT AUTO 11 % (21-46); MONOCYTES ABSOLUTE AUTO 0.61 K/mm3 (0.16-1.47); MONOCYTES PERCENT AUTO 9 % (4-13); Mean Corpuscular HGB 28.9 pg (26.0-34.0); Mean Corpuscular Volume 90 fL (80-100); Mean Platelet Volume 9.2 fL (9.1-12.4); NEUTROPHILS PERCENT AUTO 79 % (41-73); Platelet Count 348 K/mm3 (150-400); RDW Coefficient Variation 14.6 % (11.7-14.2); RDW Standard Deviation 48.3 fL (35.1-46.3); Red Blood Cell Count 4.57 M/mm3 (4.30-5.90); White Blood Cell Count 7.21 K/mm3 (4.00-11.30)
[2020-08-28 21:00] LABS: Alanine Aminotransfer (ALT/SGP 10 U/L (12-78); Albumin, Blood 3.3 g/dL (3.4-5.0); Albumin/Globulin Ratio 0.9 (0.8-1.8); Alk Phos 87 U/L (50-136); Anion Gap 8 mmol/L (6-16); Aspartate Aminotrans (AST/SGOT 11 U/L (12-37); Bilirubin, Total 0.4 mg/dL (0.1-1.0); Blood Urea Nitrogen 12 mg/dL (8-24); Bun/Creatinine Ratio 11.7 (12.0-20.0); CO2, Blood 24 mmol/L (21-32); Calcium, Blood 9.5 mg/dL (8.5-10.1); Chloride, Blood 106 mmol/L (98-108); Creatinine, Blood 1.03 mg/dL (0.60-1.20); Globulin, Blood 3.8 g/dL (2.2-4.0); Glomerular Filtration Rate >60 (60-); Glucose, Blood 99 mg/dL (70-99); Magnesium, Blood 2.1 mg/dL (1.6-2.4); Potassium, Blood 3.7 mmol/L (3.5-5.5); Sodium, Blood 138 mmol/L (136-145); Total Protein, Blood 7.1 g/dL (6.4-8.2)
[2020-08-28 21:01] LABS: Troponin I <0.015 ng/mL (0.000-0.040)
[2020-08-28] MEDS ORDERED: Seroquel Xr50 MG PO (23:23)
[2020-08-28] MEDS ORDERED: SERT25 PO (23:24)
[2020-08-29 00:17] LABS: Source, Urine Voided
[2020-08-29 00:29] LABS: Appearance, Urine Cloudy (Clear); Bacteria Many /hpf; Bilirubin, Urine Neg (Neg); Blood, Urine 2+ (Neg); Color, Urine Yellow (P-Yellow); Glucose Qualitative, Urine Neg (Neg); Ketones, Urine Neg (Neg); Leukocyte Esterase, Urine 3+ (Neg); Nitrite, Urine Pos (Neg); Protein, Urine 2+ (Neg); Red Blood Cells, Urine 0-2 /hpf (0-2); Squamous Epithelial Cells Not Seen /hpf (Few); Urobilinogen, Urine NORM (Normal); White Blood Cells, Urine TNTC /hpf (0-5)
[2020-08-29] MEDS ORDERED: Bactrim Ds Tab1 EACH PO (00:43)
== END 2020-08-29 01:12 ==
LOC: ER 17:55
PROVIDERS: Emergency Medicine
DX: S13.4XXA Sprain of ligaments of cervical spine, initial encounter (principal); S00.83XA Contusion of other part of head, initial encounter; N39.0 Urinary tract infection, site not specified; I10 Essential (primary) hypertension; Z88.5 Allergy status to narcotic agent; Z79.899 Other long term (current) drug therapy; W01.10XA Fall on same level from slipping, tripping and stumbling with subsequent striking against unspecified object, initial encounter
CPT/HCPCS: 36415; 70450; 71045; 72125; 80053; 81001; 83690; 83735; 84484; 85025; 85379; 93005; 93010; 96360; 99285-25; A9270-GY; J7030

== ENCOUNTER → 2020-09-25 | Outpatient (CLI) | payer MEDICARE, OTHER ==
[~2020-09-25] MED LIST changes: +Bactrim Ds Tab1 EACH PO; +SERT25 PO; +Seroquel Xr50 MG PO
[2020-09-25 17:57] LABS: Appearance, Urine Clear (Clear); Bilirubin, Urine Neg (Neg); Blood, Urine Neg (Neg); Color, Urine Yellow (P-Yellow); Glucose Qualitative, Urine Neg (Neg); Ketones, Urine Neg (Neg); Leukocyte Esterase, Urine Neg (Neg); Nitrite, Urine Neg (Neg); Protein, Urine Neg (Neg); Urobilinogen, Urine NORM (Normal)
== END ==
LOC: LAB 13:30 → LAB SHORT 13:30
PROVIDERS: Nurse Practitioner
DX: N39.0 Urinary tract infection, site not specified (principal)
CPT/HCPCS: 81003; 87086

== ENCOUNTER 2020-09-29 10:57 | Emergency (ER) | payer MEDICARE, OTHER ==
[~2020-09-29] VITALS: Ht 182.9 cm; Wt 71.2 kg
[2020-09-29 12:18] LABS: BASOPHILS ABSOLUTE AUTO 0.05 K/mm3 (0.00-0.23); BASOPHILS PERCENT AUTO 1 % (0-2); EOSINOPHILS ABSOLUTE AUTO 0.08 K/mm3 (0.00-0.68); EOSINOPHILS PERCENT AUTO 1 % (0-6); Hematocrit 40.7 % (37.0-53.0); Hemoglobin 12.7 g/dL (13.5-17.5); IMMATURE GRAN ABSOLUTE AUTO 0.01 K/mm3 (0.00-0.10); IMMATURE GRAN PERCENT AUTO 0 % (0-1); LYMPHOCYTES ABSOLUTE AUTO 0.79 K/mm3 (0.84-5.20); LYMPHOCYTES PERCENT AUTO 9 % (21-46); MONOCYTES ABSOLUTE AUTO 0.84 K/mm3 (0.16-1.47); MONOCYTES PERCENT AUTO 10 % (4-13); Mean Corpuscular HGB 29.3 pg (26.0-34.0); Mean Corpuscular HGB Conc 31.2 g/dL (31.5-36.5); Mean Corpuscular Volume 94 fL (80-100); NEUTROPHILS ABSOLUTE AUTO 6.83 K/mm3 (1.96-9.15); NEUTROPHILS PERCENT AUTO 79 % (41-73); Platelet Count 312 K/mm3 (150-400); RDW Coefficient Variation 13.7 % (11.7-14.2); RDW Standard Deviation 47.9 fL (35.1-46.3); Red Blood Cell Count 4.33 M/mm3 (4.30-5.90)
[2020-09-29 12:29] LABS: Alanine Aminotransfer (ALT/SGP 12 U/L (12-78); Albumin, Blood 3.4 g/dL (3.4-5.0); Alk Phos 91 U/L (50-136); Anion Gap 7 mmol/L (6-16); Aspartate Aminotrans (AST/SGOT 14 U/L (12-37); Bilirubin, Total 0.3 mg/dL (0.1-1.0); Blood Urea Nitrogen 11 mg/dL (8-24); Bun/Creatinine Ratio 11.5 (12.0-20.0); CO2, Blood 27 mmol/L (21-32); Calcium, Blood 9.1 mg/dL (8.5-10.1); Chloride, Blood 106 mmol/L (98-108); Creatinine, Blood 0.95 mg/dL (0.60-1.20); Globulin, Blood 3.5 g/dL (2.2-4.0); Glomerular Filtration Rate >60 (60-); Glucose, Blood 135 mg/dL (70-99); Potassium, Blood 3.3 mmol/L (3.5-5.5); Sodium, Blood 140 mmol/L (136-145); Total Protein, Blood 6.9 g/dL (6.4-8.2); Troponin I <0.015 ng/mL (0.000-0.040)
[2020-09-29 14:11] LABS: Source, Urine Voided
[2020-09-29 14:16] LABS: Appearance, Urine Clear (Clear); Bilirubin, Urine Neg (Neg); Blood, Urine Neg (Neg); Color, Urine Yellow (P-Yellow); Glucose Qualitative, Urine Neg (Neg); Ketones, Urine Neg (Neg); Leukocyte Esterase, Urine Neg (Neg); Nitrite, Urine Neg (Neg); Protein, Urine Neg (Neg); Urobilinogen, Urine NORM (Normal); pH, Urine 6.5 (5.0-8.0)
== END 2020-09-29 16:22 | disposition home or self-care (01) ==
LOC: ER 10:57
PROVIDERS: Emergency Medicine
DX: S46.911A Strain of unspecified muscle, fascia and tendon at shoulder and upper arm level, right arm, initial encounter (principal); S29.012A Strain of muscle and tendon of back wall of thorax, initial encounter; S60.811A Abrasion of right wrist, initial encounter; I10 Essential (primary) hypertension; E78.5 Hyperlipidemia, unspecified; Z88.5 Allergy status to narcotic agent; Z79.899 Other long term (current) drug therapy; W18.30XA Fall on same level, unspecified, initial encounter
CPT/HCPCS: 36415; 70450; 71045; 72072; 72125; 73030; 80053; 81003; 83690; 84484; 85025; 93005; 93010; 99285-25; A9270; J7030

== ENCOUNTER 2020-10-05 09:50 | Emergency (ER) | payer MEDICARE, OTHER ==
[~2020-10-05] VITALS: Ht 182.9 cm; Wt 74.8 kg
[2020-10-05 11:51] LABS: BASOPHILS ABSOLUTE AUTO 0.03 K/mm3 (0.00-0.23); BASOPHILS PERCENT AUTO 0 % (0-2); EOSINOPHILS ABSOLUTE AUTO 0.04 K/mm3 (0.00-0.68); EOSINOPHILS PERCENT AUTO 0 % (0-6); Hematocrit 38.6 % (37.0-53.0); Hemoglobin 12.4 g/dL (13.5-17.5); IMMATURE GRAN ABSOLUTE AUTO 0.06 K/mm3 (0.00-0.10); IMMATURE GRAN PERCENT AUTO 1 % (0-1); LYMPHOCYTES PERCENT AUTO 4 % (21-46); MONOCYTES ABSOLUTE AUTO 0.63 K/mm3 (0.16-1.47); MONOCYTES PERCENT AUTO 6 % (4-13); Mean Corpuscular HGB Conc 32.1 g/dL (31.5-36.5); Mean Corpuscular Volume 94 fL (80-100); Mean Platelet Volume 9.8 fL (9.1-12.4); NEUTROPHILS ABSOLUTE AUTO 10.04 K/mm3 (1.96-9.15); NEUTROPHILS PERCENT AUTO 89 % (41-73); Platelet Count 289 K/mm3 (150-400); RDW Coefficient Variation 13.6 % (11.7-14.2); RDW Standard Deviation 46.9 fL (35.1-46.3); Red Blood Cell Count 4.13 M/mm3 (4.30-5.90)
[2020-10-05 12:06] LABS: International Normalized Ratio 0.98; Prothrombin Time Results 10.5 Sec (9.7-11.5)
[2020-10-05 12:13] LABS: Alanine Aminotransfer (ALT/SGP 17 U/L (12-78); Albumin, Blood 3.2 g/dL (3.4-5.0); Albumin/Globulin Ratio 0.9 (0.8-1.8); Alk Phos 76 U/L (50-136); Anion Gap 7 mmol/L (6-16); Aspartate Aminotrans (AST/SGOT 12 U/L (12-37); Bilirubin, Total 0.5 mg/dL (0.1-1.0); Blood Urea Nitrogen 13 mg/dL (8-24); CO2, Blood 27 mmol/L (21-32); Calcium, Blood 9.3 mg/dL (8.5-10.1); Chloride, Blood 107 mmol/L (98-108); Creatinine, Blood 0.87 mg/dL (0.60-1.20); Globulin, Blood 3.4 g/dL (2.2-4.0); Glomerular Filtration Rate >60 (60-); Glucose, Blood 85 mg/dL (70-99); Potassium, Blood 3.8 mmol/L (3.5-5.5); Sodium, Blood 141 mmol/L (136-145); Total Protein, Blood 6.6 g/dL (6.4-8.2)
== END 2020-10-05 14:56 | disposition home or self-care (01) ==
LOC: ER 09:50
PROVIDERS: Emergency Medicine
DX: S06.5X9A Traumatic subdural hemorrhage with loss of consciousness of unspecified duration, initial encounter (principal); I10 Essential (primary) hypertension; Z88.5 Allergy status to narcotic agent; Z79.899 Other long term (current) drug therapy; Z91.81 History of falling; W18.09XA Striking against other object with subsequent fall, initial encounter
CPT/HCPCS: 70450; 72125; 80053; 85025; 85610; 85730; 99284-25

== ENCOUNTER 2020-10-09 16:35 | Emergency (ER) | payer MEDICARE, OTHER ==
[~2020-10-09] VITALS: Ht 182.9 cm; Wt 70.3 kg
== END 2020-10-09 18:25 | disposition home or self-care (01) ==
LOC: ER 16:35
DX: M25.571 Pain in right ankle and joints of right foot (principal); F17.200 Nicotine dependence, unspecified, uncomplicated; I10 Essential (primary) hypertension; Z79.899 Other long term (current) drug therapy; Z88.5 Allergy status to narcotic agent
CPT/HCPCS: 73600; 99283-25